=== PATIENT | male | born 1945 | race Caucasian/White ===

== ENCOUNTER 2025-03-30 11:08 | Inpatient (IN) ==
--- NOTE | 2025-03-30 11:28 | Emergency Department Note ---
ED DC CONDITION Conditon at Discharge Condition at Discharge: Fair Impression & Plan T4 vertebral fracture, Fall, Closed fracture of glenoid cavity of left scapula, Chest wall tenderness ED Provider Note NAME: JOSE GUADALUPE HERNANDEZ AGE: 80 SEX: M : 1945 ARRIVES VIA: Walk-In INFORMANT: Patient ED PROVIDER(S): Donavon Cruz DO CHIEF COMPLAINT: Fall HPI: Patient is a 80-year-old male with a past medical history of chest pain, hypertension who presents to the ER for a fall last week. He notes he was stepping out of the bathtub and lost his balance and fell backwards. He has been having pain on his left neck, left shoulder blade, left back mid thoracic and lower lumbar region. He has significant pain with any movement. Denies any weakness or numbness in the arms or legs. No chest pain or shortness of breath. No nausea, vomiting, or diarrhea. No dysuria, urgency, or frequency. He has been walking since then but has significant pain. Able to urinate move bowels. ADDITIONAL HISTORY OBTAINED: Family present at bedside denies use of any blood thinners. Chronic Medical/Social Conditions Affecting Care: Per HPI PAST MEDICAL HISTORY:See Below PAST SURGICAL HISTORY:See Below FAMILY HISTORY:See Below SOCIAL HISTORY:See Below HOME MEDICATIONS:See Below ALLERGIES:See Below VITALS:See Below PHYSICAL EXAMINATION: GENERAL: alert, well appearing, well nourished, no distress, non-toxic HEAD: normal cephalic, atraumatic EYE EXAM: normal conjunctiva, PERRL and EOM's grossly intact OROPHARYNX: no exudate, no erythema, lips, buccal mucosa, and tongue normal and mucous membranes are moist NECK: supple, no nuchal rigidity, no adenopathy, tender in the cervical region paraspinally with midline tenderness resuming in the mid thoracic region tracking down to the lower lumbar region CHEST: stable to compression anteriorly and posteriorly LUNGS: clear to auscultation. Normal chest wall mechanics HEART: no murmurs, S1 normal and S2 normal ABDOMEN: abdomen soft, non-tender, normo-active bowel sounds, no masses, no rebound or guarding. PELVIS: stable to compression anteriorly and posteriorly BACK: Back is symmetrical on inspection and there is no deformity, tenderness midthoracic tracking to the lower lumbar and left paraspinal region, no CVA tenderness. UPPER EXTREMITIES: full active and passive range of motion of all joints without tenderness to palpation LOWER EXTREMITIES: full active and passive range of motion of all joints without tenderness to palpation NEURO EXAM: Normal sensorium, cranial nerves II-XII grossly intact, normal speech, no gross weakness of arms, no gross weakness of legs. GCS: 15. MEDICAL DECISION MAKING: Patient is a 80-year-old male who presents ER for the above-stated complaint. IV was established and blood work was obtained. Labs showed no significant leukocytosis. Mild anemia 12.4. BMP along with LFTs bilirubin was unremarkable. Troponin was negative. Lipase was normal. UA was clean. Lyme was negative. Patient had a mechanical fall and CT of the head, cervical spine, chest abdomen pelvis thoracic and lumbar spine shows a T4 fracture and fracture of the glenoid. Discussed with Dr. Howell and he recommends following this up as an outpatient. Discussed with Dr. Neri and he recommended sling and having him follow-up as an outpatient. Patient has not symptomatic pain with movement. Was given IV morphine x 2. Was admitted for pain control and inability to care for self. Consults/Care Managements Discussions: Per [facility] Triage Nursing notes reviewed. Limited review of prior medical records performed Vital Signs: reviewed and remarkable for hypotension Differential diagnosis: Differential diagnoses include major intracranial, cervical, spinal, thoracic, abdominal, pelvic and neurologic injury. Fracture, contusion, sprain, strain, laceration, abrasions included as well. ER treatment provided: See below Diagnostics interpreted by me include EKG and cardiac monitoring as listed below: -Cardiac Monitoring: An order was placed for continuous cardiac monitoring. The monitor shows a rate of 70 with sinus rhythm. -ECG: Sinus rhythm rate of 67 Left axis No PVCs QTc 420 -Laboratory studies:Interpreted by me as stated above in MDM and shown below. Imaging studies: Xrays: As interpreted by me: Portable AP upright 1 view the chest shows no focal infiltrate, x-rays of the ribs without any obvious fractures CTs show: CT head, cervical spine, chest abdomen pelvis thoracic and lumbar spine as described above Procedures:none Critical Care: None Past Med/Surg History Problem List (Updated 03/30/25 @ 17:10 by Donavon Cruz DO) Chest wall tenderness (Acute) Fall (Acute) Closed fracture of glenoid cavity of left scapula (Acute) T4 vertebral fracture (Acute) Ambulatory dysfunction Fall Corneal foreign body (Acute) Chest pain (Acute) Medical History Arthritis BPH (benign prostatic hyperplasia) GERD (gastroesophageal reflux disease) Diabetes mellitus, type 2 Hx of basal cell carcinoma History of anxiety Hypertension Hyperlipidemia Surgical History History of cataract surgery right History of repair of rotator cuff right History of colonoscopy History of appendectomy History of cholecystectomy History of tooth extraction History of cardiac cath 2019> no stents placed Family History Other No family history of adverse response to anesthesia Social History Smoking Status: Never smoker Tobacco Type: Smokeless Tobacco (Dip or Chew) Second Hand Exposure: Yes (in the past); Do You Dip or Chew Tobacco: Yes (advised); Hx Alcohol Use: No Preferred Language: Polish Siphoner Required: No Beliefs That Will Affect Care: None Current Living Situation: Significant Other Feels Safe at Home: Yes Assistive Devices: Denture - Upper and Denture - Lower Allergies Allergies Allergy/AdvReac Type Severity Reaction Status Date / Time No Known Allergies Allergy Mild Verified 03/30/25 14:18 Home Meds Home Medications Medication Instructions Recorded Confirmed aspirin 81 mg capsule 81 mg PO Q2D 02/06/24 03/30/25 carvedilol 6.25 mg tablet 6.25 mg PO BID 02/06/24 03/30/25 cyanocobalamin (vitamin B-12) 1,000 mcg PO DAILY 02/06/24 03/30/25 1,000 mcg tablet doxazosin 4 mg tablet 4 mg PO HS 02/06/24 03/30/25 empagliflozin 25 mg tablet 25 mg PO QAM 02/06/24 03/30/25 (Jardiance) lisinopril 20 mg tablet 20 mg PO QAM 02/06/24 03/30/25 metformin 500 mg tablet 1,000 mg PO BID 02/06/24 03/30/25 pantoprazole 40 mg tablet,delayed 40 mg PO BID 02/06/24 03/30/25 release rosuvastatin 5 mg tablet 5 mg PO HS 02/06/24 03/30/25 sertraline 100 mg tablet 100 mg PO QPM 02/06/24 03/30/25 finasteride 5 mg tablet 5 mg PO QAM 03/30/25 03/30/25 Results & Data (ED) Vital Signs Vital Signs - 24 hr 03/30/25 11:12 03/30/25 11:33 03/30/25 11:38 Temperature 36.8 C Temperature Source Temporal Artery Scan Pulse Rate - Lying Pulse Rate - Sitting Pulse Rate - Standing Pulse Rate 73 69 Pulse Rate [Apical] Respiratory Rate 20 Respiratory Effort / Characteristics Non-Labored Spontaneous Respiratory Depth Normal Respiratory Pattern Blood Pressure - Lying Blood Pressure - Sitting Blood Pressure- Standing Blood Pressure 95/55 L Blood Pressure [Right Arm] Blood Pressure Mean 68 Blood Pressure Mean [Right Arm] Blood Pressure Position [Right Arm] Pulse Oximetry 98 91 Oxygen Delivery Method Room Air Room Air Sepsis Recent Fever Within 48 Hours No Sepsis New/Unexplained Change in Mental Status No Sepsis Action Taken by Nursing No Action Required 03/30/25 11:39 03/30/25 13:39 03/30/25 14:08 Temperature Temperature Source Pulse Rate - Lying Pulse Rate - Sitting Pulse Rate - Standing Pulse Rate Pulse Rate [Apical] 57 L 65 Respiratory Rate 22 20 Respiratory Effort / Characteristics Non-Labored Spontaneous Non-Labored Spontaneous Respiratory Depth Normal Normal Respiratory Pattern Regular Blood Pressure - Lying Blood Pressure - Sitting Blood Pressure- Standing Blood Pressure Blood Pressure [Right Arm] 117/57 L 114/60 Blood Pressure Mean Blood Pressure Mean [Right Arm] 77 78 Blood Pressure Position [Right Arm] Semi-fowlers Sitting Pulse Oximetry 92 92 93 Oxygen Delivery Method Room Air Room Air Room Air Sepsis Recent Fever Within 48 Hours Sepsis New/Unexplained Change in Mental Status Sepsis Action Taken by Nursing 03/30/25 15:13 03/30/25 15:38 03/30/25 16:41 Temperature Temperature Source Pulse Rate - Lying 61 Pulse Rate - Sitting 76 Pulse Rate - Standing 72 Pulse Rate 72 Pulse Rate [Apical] 61 Respiratory Rate 26 H Respiratory Effort / Characteristics Respiratory Depth Respiratory Pattern Blood Pressure - Lying 128/66 Blood Pressure - Sitting 117/57 L Blood Pressure- Standing 123/62 Blood Pressure Blood Pressure [Right Arm] 109/93 Blood Pressure Mean Blood Pressure Mean [Right Arm] 98 Blood Pressure Position [Right Arm] Pulse Oximetry 96 Oxygen Delivery Method Room Air Sepsis Recent Fever Within 48 Hours Sepsis New/Unexplained Change in Mental Status Sepsis Action Taken by Nursing Laboratory Data 03/30/25 11:33 03/30/25 11:33 Lab Results 03/30/25 03/30/25 03/30/25 Range/Units 11:33 11:36 Unknown WBC 7.39 (4.8-10.8) K/ul RBC 4.70 (4.70-6.10) M/uL Hgb 12.4 L (14.0-18.0) g/dl POC Hgb 12.6 L (14.0-18.0) g/dl Hct 37.9 L (42.0-52.0) % POC Hct 37 L (42-52) % MCV 80.6 (80.0-100.0) fL MCH 26.4 (25.0-34.0) pg MCHC 32.7 (32.0-36.0) g/dL RDW Std Deviation 44.4 (36.4-46.3) fL RDW Coeff of Ruben 15.4 H (11.5-14.5) % Plt Count 219 (130-400) K/uL MPV 8.6 L (9.4-12.4) fL Immature Gran % (Auto) 0.7 % Neut % (Auto) 77.8 % Lymph % (Auto) 11.4 % Banks % (Auto) 9.2 % Eos % (Auto) 0.5 % Baso % (Auto) 0.4 % Neut # (Auto) 5.75 (1.40-6.50) K/uL Lymph # (Auto) 0.84 L (1.20-3.40) K/uL Banks # (Auto) 0.68 H (0.11-0.59) K/uL Eos # (Auto) 0.04 (0.00-0.50) K/uL Baso # (Auto) 0.03 (0.00-0.20) K/uL Immature Gran # (Auto) 0.05 (0.01-0.20) K/uL POC Sodium 140 (135-144) mmol/L Sodium 140 (136-145) mmol/L POC Potassium 4.0 (3.3-5.0) mmol/L Potassium 4.0 (3.5-5.1) mmol/L POC Chloride 102 (101-112) mmol/L Chloride 103 (98-107) mmol/L Carbon Dioxide 27 (21-32) mmol/L POC Total CO2 27 (24-31) mmol/L Anion Gap 10 (3-11) POC Anion Gap 16.0 (16-25) mmol/L POC BUN 17 (7-18) mg/dl BUN 18 (6-23) mg/dl Creatinine 0.86 (0.6-1.4) mg/dl POC Creatinine 0.9 (0.6-1.3) mg/dl Est Cr Clr Drug Dosing 69.6 ml/min eGFR 88.08 BUN/Creatinine Ratio 20.9 H (10-20) Glucose 234 H (70-99(Fasting)) mg/dl POC Glucose (other) 229 H (70-99) mg/dl Calcium 9.3 (8.6-10.3) mg/dl POC Ioniz Calcium Key 1.20 (1.12-1.32) mmol/l Total Bilirubin 0.7 (0.2-1.0) mg/dl AST 11 L (13-39) U/L ALT 17 (7-52) U/L Alkaline Phosphatase 124 H (34-104) U/L Troponin I High Sens 6.9 (0-20) pg/ml Total Protein 7.2 (6.0-8.3) gm/dl Albumin 3.8 (3.4-5.0) gm/dl Globulin 3.4 (2.5-4.0) gm/dl Albumin/Globulin Ratio 1.1 (0.9-2) Lipase 9 L (11-82) U/L Urine Color Yellow Urine Appearance Clear (Clear) Urine pH 5.5 (4.5-7.5) Ur Specific Hazel > 1.045 H (1.000-1.030) Urine Protein Negative (Negative) Urine Glucose (UA) 3+ H (Negative) Urine Ketones Negative (Negative) Urine Blood Negative (Negative) Urine Nitrite Negative (Negative) Urine Bilirubin Negative (Negative) Urine Urobilinogen Negative (Negative) Ur Leukocyte Esterase Negative (Negative) Urine Comment Lyme Disease Screen Negative (Negative) Administered Medications Discontinued Medications Sodium Chloride (Nss) 1,000 mls @ 999 mls/hr IV .Q1H1M ONE Stop: 03/30/25 12:28 Last Infusion: 03/30/25 14:31 Dose: Infused Documented By: Admin: 03/30/25 11:48 Dose: 999 mls/hr Documented By: MURALI Ioversol (Optiray 320 100ml) 94 ml IV ONCE ONE Stop: 03/30/25 12:27 Last Admin: 03/30/25 12:26 Dose: 94 ml Documented By: JENNY Morphine Sulfate (Morphine Sulfate 2 Mg/Ml Carp) 2 mg IV NOW STA Stop: 03/30/25 11:29 Last Admin: 03/30/25 11:48 Dose: 2 mg Documented By: MMF Morphine Sulfate (Morphine Sulfate 2 Mg/Ml Carp) 2 mg IV NOW STA Stop: 03/30/25 14:56 Last Admin: 03/30/25 15:13 Dose: 2 mg Documented By: JOLENE Ondansetron HCl (Ondansetron Inj 2 Mg/Ml 2 Ml Vial) 4 mg IV NOW STA Stop: 03/30/25 11:29 Last Admin: 03/30/25 11:48 Dose: 4 mg Documented By: MURALI Imaging Data Radiologist's Impression: Chest X-Ray 03/30/25 11:24 EXAM: Radiograph of the Chest 1 View INDICATION: Pain TECHNIQUE: Frontal view of the chest. COMPARISON: No relevant prior studies available. FINDINGS: Lungs and pleural spaces: Mild symmetrical interstitial scarring present. No consolidation or pulmonary edema. No pleural effusion or pneumothorax. Heart: Shape and configuration within normal limits allowing for technique. Mediastinum: Normal contour. Bones/joints: Degenerative changes noted throughout the spine and both shoulders. No lytic or blastic lesions noted. Soft tissues: No abnormality noted. No radiopaque foreign body noted. Upper abdomen: No abnormality noted. IMPRESSION: No acute cardiopulmonary disease. ACT 112: N/A Electronically signed by Yasmeen Araujo 03-30-2025 12:52 PM Abdomen/Pelvis CT 03/30/25 11:25 EXAM: CT Chest Abdomen and Pelvis With Intravenous Contrast INDICATION: Trauma last week. Weakness. TECHNIQUE: Axial computed tomography images of the chest, abdomen and pelvis with intravenous contrast. Sagittal and coronal reformatted images were created and reviewed. This CT exam was performed using one or more of the following dose reduction techniques: automated exposure control, adjustment of the mA and/or kV according to patient size, and/or use of iterative reconstruction technique. CONTRAST: 94ml of Optiray 320 was administered intravenously. COMPARISON: No relevant prior studies available. FINDINGS: Limitations: None. CHEST: Lungs and pleural spaces: There is dependent atelectasis in both lung bases. No significant pleural effusion. No pneumothorax. No mass. Heart: Cardiomegaly. No right heart strain. No pericardial effusion. Marked left anterior coronary calcification noted. Mediastinum: No abnormality noted. Thyroid: No abnormality noted. ABDOMEN: Liver: Low attenuation focus in the liver consistent with a hepatic cyst. No follow-up is necessary. Gallbladder and bile ducts: Cholecystectomy. No ductal dilation or stone noted. Pancreas: Homogeneous enhancement. No mass, inflammation or ductal dilation. Spleen: No significant abnormality noted. Adrenals: No significant abnormality noted. Kidneys and ureters: Normal enhancement. No mass, hydronephrosis or visualized stone. Stomach and bowel: Prominent fluid throughout the intestinal tract without obstruction. There is some formed stool scattered in loops particularly the rectum. No focal inflammatory process. There is a right inguinal hernia containing small bowel loops without obstruction. PELVIS: Appendix: No findings to suggest acute appendicitis. Bladder: No filling defects to suggest mass or large stone. No inflammation. Reproductive: Enlarged heterogeneous sleep enhancing prostate with nodular opacities present throughout. The prostate measures 6.0 x 5.5 x 5.8 cm. CHEST, ABDOMEN and PELVIS: Intraperitoneal space: No free air. No significant fluid collection. Retroperitoneal space: No abnormality noted. No fluid collection. Bones/joints: See below. Soft tissues: There is a small paraspinal soft tissue hematoma at approximate T4 with fracture through the anterior osseous bridge at T3-T4 and the superior endplate of T4. No stenosis. Degenerative changes present at other spinal levels. There is an acute comminuted fracture of the left glenoid. Vasculature: Atherosclerotic calcification of the aorta and branches. No aneurysm. Lymph nodes: No enlarged lymph nodes. IMPRESSION: 1. Acute left glenoid and T4 fractures. 2. No traumatic change of the aorta or solid abdominal or pelvic organs. Impression ileus. Impression enlarged prostate with multiple nodules. Correlate clinically. 3. Small bowel containing right inguinal hernia without obstruction. ACT 112: N/A Electronically signed by Yasmeen Araujo 03-30-2025 13:[address] 03/30/25 11:25 EXAM: CT Head and Cervical Spine Without Intravenous Contrast INDICATION: Trauma last week. Weakness. TECHNIQUE: Axial computed tomography images of the head/brain and cervical spine without intravenous contrast. Sagittal and coronal reformatted images were created and reviewed. This CT exam was performed using one or more of the following dose reduction techniques: automated exposure control, adjustment of the mA and/or kV according to patient size, and/or use of iterative reconstruction technique. COMPARISON: No relevant prior studies available. FINDINGS: Limitations: None. Brain and extra-axial spaces: There is age appropriate cortical atrophy and chronic ischemic periventricular white matter hypodensity. No acute infarct, hemorrhage or mass noted. Sinuses: No layering fluid in the visualized portions of the paranasal sinuses. Mastoid air cells: No mastoid effusion. Orbits: No significant abnormality noted. Vertebrae: See below. Discs/spinal canal/neural foramina: Cervical vertebra demineralized. Diffuse moderate facet arthrosis. There is partial osseous fusion of C2 and C3. Mild spondylosis. Prominent uncal spurring C3-C4. Diffuse mild disc space narrowing. Soft tissues: No significant abnormality noted. Vasculature: Intracranial atherosclerosis noted. Mild intracranial atherosclerosis of the vertebral arteries. Lung apices: No significant abnormality noted. Pleural space: No visualized pleural effusion or pneumothorax. IMPRESSION: 1. Cerebral atrophy. No acute changes. 2. Cervical degenerative changes. No fracture. ACT 112: N/A Electronically signed by Yasmeen Araujo 03-30-2025 13:[address] 03/30/25 11:25 EXAM: CT Chest Abdomen and Pelvis With Intravenous Contrast INDICATION: Trauma last week. Weakness. TECHNIQUE: Axial computed tomography images of the chest, abdomen and pelvis with intravenous contrast. Sagittal and coronal reformatted images were created and reviewed. This CT exam was performed using one or more of the following dose reduction techniques: automated exposure control, adjustment of the mA and/or kV according to patient size, and/or use of iterative reconstruction technique. CONTRAST: 94ml of Optiray 320 was administered intravenously. COMPARISON: No relevant prior studies available. FINDINGS: Limitations: None. CHEST: Lungs and pleural spaces: There is dependent atelectasis in both lung bases. No significant pleural effusion. No pneumothorax. No mass. Heart: Cardiomegaly. No right heart strain. No pericardial effusion. Marked left anterior coronary calcification noted. Mediastinum: No abnormality noted. Thyroid: No abnormality noted. ABDOMEN: Liver: Low attenuation focus in the liver consistent with a hepatic cyst. No follow-up is necessary. Gallbladder and bile ducts: Cholecystectomy. No ductal dilation or stone noted. Pancreas: Homogeneous enhancement. No mass, inflammation or ductal dilation. Spleen: No significant abnormality noted. Adrenals: No significant abnormality noted. Kidneys and ureters: Normal enhancement. No mass, hydronephrosis or visualized stone. Stomach and bowel: Prominent fluid throughout the intestinal tract without obstruction. There is some formed stool scattered in loops particularly the rectum. No focal inflammatory process. There is a right inguinal hernia containing small bowel loops without obstruction. PELVIS: Appendix: No findings to suggest acute appendicitis. Bladder: No filling defects to suggest mass or large stone. No inflammation. Reproductive: Enlarged heterogeneous sleep enhancing prostate with nodular opacities present throughout. The prostate measures 6.0 x 5.5 x 5.8 cm. CHEST, ABDOMEN and PELVIS: Intraperitoneal space: No free air. No significant fluid collection. Retroperitoneal space: No abnormality noted. No fluid collection. Bones/joints: See below. Soft tissues: There is a small paraspinal soft tissue hematoma at approximate T4 with fracture through the anterior osseous bridge at T3-T4 and the superior endplate of T4. No stenosis. Degenerative changes present at other spinal levels. There is an acute comminuted fracture of the left glenoid. Vasculature: Atherosclerotic calcification of the aorta and branches. No aneurysm. Lymph nodes: No enlarged lymph nodes. IMPRESSION: 1. Acute left glenoid and T4 fractures. 2. No traumatic change of the aorta or solid abdominal or pelvic organs. Impression ileus. Impression enlarged prostate with multiple nodules. Correlate clinically. 3. Small bowel containing right inguinal hernia without obstruction. ACT 112: N/A Electronically signed by Yasmeen Araujo 03-30-2025 13:[address] 03/30/25 11:25 EXAM: CT Head and Cervical Spine Without Intravenous Contrast INDICATION: Trauma last week. Weakness. TECHNIQUE: Axial computed tomography images of the head/brain and cervical spine without intravenous contrast. Sagittal and coronal reformatted images were created and reviewed. This CT exam was performed using one or more of the following dose reduction techniques: automated exposure control, adjustment of the mA and/or kV according to patient size, and/or use of iterative reconstruction technique. COMPARISON: No relevant prior studies available. FINDINGS: Limitations: None. Brain and extra-axial spaces: There is age appropriate cortical atrophy and chronic ischemic periventricular white matter hypodensity. No acute infarct, hemorrhage or mass noted. Sinuses: No layering fluid in the visualized portions of the paranasal sinuses. Mastoid air cells: No mastoid effusion. Orbits: No significant abnormality noted. Vertebrae: See below. Discs/spinal canal/neural foramina: Cervical vertebra demineralized. Diffuse moderate facet arthrosis. There is partial osseous fusion of C2 and C3. Mild spondylosis. Prominent uncal spurring C3-C4. Diffuse mild disc space narrowing. Soft tissues: No significant abnormality noted. Vasculature: Intracranial atherosclerosis noted. Mild intracranial atherosclerosis of the vertebral arteries. Lung apices: No significant abnormality noted. Pleural space: No visualized pleural effusion or pneumothorax. IMPRESSION: 1. Cerebral atrophy. No acute changes. 2. Cervical degenerative changes. No fracture. ACT 112: N/A Electronically signed by Yasmeen Araujo 03-30-2025 13:[address] 03/30/25 11:25 EXAM: CT Thoracic and Lumbar Spine Without Intravenous Contrast INDICATION: Fell last week. Generalized weakness. TECHNIQUE: Axial computed tomography images of the thoracic and lumbar spine without intravenous contrast. Sagittal and coronal reformatted images were created and reviewed. This CT exam was performed using one or more of the following dose reduction techniques: automated exposure control, adjustment of the mA and/or kV according to patient size, and/or use of iterative reconstruction technique. COMPARISON: No relevant prior studies available. FINDINGS: Vertebrae: The bones are generally demineralized. There is mild S-shaped curvature of the thoracic spine. Diffuse osseous demineralization noted. Diffuse thoracolumbar spondylosis noted. Facet arthrosis noted in the lumbar spine. Acute fracture through the superior endplate and anterior osseous bridge of T4. There is diffuse moderate facet arthrosis. There is moderate thoracolumbar spondylosis. No fracture or subluxation. Discs/spinal canal/neural foramina: Diffuse moderate thoracic disc space narrowing. Mild generalized lumbar disc space narrowing most notable at L5-S1. There is facet hypertrophy and diffuse disc bulge at L3-L4 with mild ventral and bilateral foraminal stenosis. Slightly more prominent but similar changes noted at L4-L5. Soft tissues: No significant abnormality noted. IMPRESSION: 1. Acute fracture through the superior endplate and anterior osseous bridge of T4. Small paraspinal soft tissue hematoma noted. 2. No acute lumbar abnormality noted. ACT 112: N/A Electronically signed by Yasmeen Araujo 03-30-2025 13:[address] 03/30/25 11:25 EXAM: CT Thoracic and Lumbar Spine Without Intravenous Contrast INDICATION: Fell last week. Generalized weakness. TECHNIQUE: Axial computed tomography images of the thoracic and lumbar spine without intravenous contrast. Sagittal and coronal reformatted images were created and reviewed. This CT exam was performed using one or more of the following dose reduction techniques: automated exposure control, adjustment of the mA and/or kV according to patient size, and/or use of iterative reconstruction technique. COMPARISON: No relevant prior studies available. FINDINGS: Vertebrae: The bones are generally demineralized. There is mild S-shaped curvature of the thoracic spine. Diffuse osseous demineralization noted. Diffuse thoracolumbar spondylosis noted. Facet arthrosis noted in the lumbar spine. Acute fracture through the superior endplate and anterior osseous bridge of T4. There is diffuse moderate facet arthrosis. There is moderate thoracolumbar spondylosis. No fracture or subluxation. Discs/spinal canal/neural foramina: Diffuse moderate thoracic disc space narrowing. Mild generalized lumbar disc space narrowing most notable at L5-S1. There is facet hypertrophy and diffuse disc bulge at L3-L4 with mild ventral and bilateral foraminal stenosis. Slightly more prominent but similar changes noted at L4-L5. Soft tissues: No significant abnormality noted. IMPRESSION: 1. Acute fracture through the superior endplate and anterior osseous bridge of T4. Small paraspinal soft tissue hematoma noted. 2. No acute lumbar abnormality noted. ACT 112: N/A Electronically signed by Yasmeen Araujo 03-30-2025 13:24 PM Shoulder X-Ray 03/30/25 14:46 Study: Left shoulder 4 views History: Trauma Comparison: None Findings/impression: Comminuted fracture of the left glenoid is seen. No significant displacement. Alignment is anatomic. Joint spaces are well maintained. There is no joint effusion or significant soft tissue swelling. Bone mineralization is decreased. Electronically signed by Diego Alcantara 03-30-2025 4:24 PM Ribs X-Ray 03/30/25 15:47 Left ribs, 5 views History: Chest pain Comparison: None Findings: Single AP view of the chest performed. No focal consolidation or pleural effusion. No pneumothorax. The cardiomediastinal silhouette is within normal limits. Normal pulmonary vascularity. No evidence for lymphadenopathy. No visualized bony or soft tissue abnormality. Impression: No acute left rib abnormality. Electronically signed by Diego Alcantara 03-30-2025 5:06 PM Discharge Plan Visit Data Chief Complaint: Weakness Stated Complaint: WEAKNESS ED Provider: Donavon Cruz Discharge Problem: T4 vertebral fracture, Fall, Closed fracture of glenoid cavity of left scapula, Chest wall tenderness Condition: Fair Forms Stand Alone Forms: My [facility] Prescriptions Prescriptions: No Action metformin 500 mg Tablet 1,000 mg PO BID sertraline 100 mg Tablet 100 mg PO QPM pantoprazole 40 mg Tablet,Delayed Release (Dr/Ec) 40 mg PO BID doxazosin 4 mg Tablet 4 mg PO HS rosuvastatin 5 mg Tablet 5 mg PO HS lisinopril 20 mg Tablet 20 mg PO QAM cyanocobalamin (vitamin B-12) 1,000 mcg Tablet 1,000 mcg PO DAILY Jardiance 25 mg Tablet 25 mg PO QAM aspirin 81 mg Capsule 81 mg PO Q2D carvedilol 6.25 mg Tablet 6.25 mg PO BID Rx Instructions: must administer with a meal/food finasteride 5 mg tablet 5 mg PO QAM Referrals Referrals: PCP,NO [Physician] - Discharge Problem: T4 vertebral fracture Qualifiers: Encounter type: initial encounter Fracture type: closed Fracture morphology: u nspecified fracture morphology Qualified Code(s): S22.049A - Unspecified fracture of fourth thoracic vertebra, initial encounter for closed fracture Fall Qualifiers: Encounter type: initial encounter Qualified Code(s): W19.XXXA - Unspecified fall, initial encounter Closed fracture of glenoid cavity of left scapula Qualifiers: Encounter type: initial encounter Fracture alignment: nondisplaced Qualified Code(s): S42.145A - Nondisplaced fracture of glenoid cavity of scapula, left shoulder, initial encounter for closed fracture
[2025-03-30] MEDS: SODIUM CHLORIDE 0.9% 1,000 ML IV ONE (11:48)
[2025-03-30] MEDS: MoRPHine SULFATE 2 MG/ML CARP IV STA ×2 (11:48→15:13)
[2025-03-30] MEDS: ONDANSETRON INJ 2 MG/ML 2 ML VIAL IV STA (11:48)
[2025-03-30 11:50] LABS: Hematocrit (blood only) 37.9 % (42.0-52.0); Hemoglobin 12.4 g/dl (14.0-18.0); Immature Granulocytes # (auto) 0.05 K/uL (0.01-0.20); Immature Granulocytes % (auto) 0.7 %; Mean Corpuscular Hemoglobin 26.4 pg (25.0-34.0); Mean Corpuscular Volume 80.6 fL (80.0-100.0); Platelet Count 219 K/uL (130-400); RDW Standard Deviation 44.4 fL (36.4-46.3); Red Blood Count 4.70 M/uL (4.70-6.10); White Blood Count 7.39 K/ul (4.8-10.8)
[2025-03-30 12:06] LABS: Alanine Aminotransferase 17.0 U/L (7-52); Albumin Globulin Ratio 1.1 (0.9-2); Alkaline Phosphatase 124.0 U/L (34-104); Anion Gap 10.0 (3-11); Bilirubin,Total 0.7 mg/dl (0.2-1.0); Blood Urea Nitrogen 18.0 mg/dl (6-23); Calcium 9.3 mg/dl (8.6-10.3); Carbon Dioxide 27.0 mmol/L (21-32); Chloride 103.0 mmol/L (98-107); Creatinine Clr Calc Pharmacy 69.6 ml/min; Globulin 3.4 gm/dl (2.5-4.0); Glucose 234.0 mg/dl (70-99(Fasting)); Lipase 9.0 U/L (11-82); Potassium 4.0 mmol/L (3.5-5.1); Sodium 140.0 mmol/L (136-145); Total Protein 7.2 gm/dl (6.0-8.3)
[2025-03-30] MEDS: OPTIRAY 320 100ml IV ONE (12:26)
--- NOTE | 2025-03-30 12:52 | XRay Report ---
EXAM: Radiograph of the Chest 1 View INDICATION: Pain TECHNIQUE: Frontal view of the chest. COMPARISON: No relevant prior studies available. FINDINGS: Lungs and pleural spaces: Mild symmetrical interstitial scarring present. No consolidation or pulmonary edema. No pleural effusion or pneumothorax. Heart: Shape and configuration within normal limits allowing for technique. Mediastinum: Normal contour. Bones/joints: Degenerative changes noted throughout the spine and both shoulders. No lytic or blastic lesions noted. Soft tissues: No abnormality noted. No radiopaque foreign body noted. Upper abdomen: No abnormality noted. IMPRESSION: No acute cardiopulmonary disease. ACT 112: N/A Electronically signed by Yasmeen Araujo 03-30-2025 12:52 PM
--- NOTE | 2025-03-30 13:15 | CT Scan Report ---
EXAM: CT Head and Cervical Spine Without Intravenous Contrast INDICATION: Trauma last week. Weakness. TECHNIQUE: Axial computed tomography images of the head/brain and cervical spine without intravenous contrast. Sagittal and coronal reformatted images were created and reviewed. This CT exam was performed using one or more of the following dose reduction techniques: automated exposure control, adjustment of the mA and/or kV according to patient size, and/or use of iterative reconstruction technique. COMPARISON: No relevant prior studies available. FINDINGS: Limitations: None. Brain and extra-axial spaces: There is age appropriate cortical atrophy and chronic ischemic periventricular white matter hypodensity. No acute infarct, hemorrhage or mass noted. Sinuses: No layering fluid in the visualized portions of the paranasal sinuses. Mastoid air cells: No mastoid effusion. Orbits: No significant abnormality noted. Vertebrae: See below. Discs/spinal canal/neural foramina: Cervical vertebra demineralized. Diffuse moderate facet arthrosis. There is partial osseous fusion of C2 and C3. Mild spondylosis. Prominent uncal spurring C3-C4. Diffuse mild disc space narrowing. Soft tissues: No significant abnormality noted. Vasculature: Intracranial atherosclerosis noted. Mild intracranial atherosclerosis of the vertebral arteries. Lung apices: No significant abnormality noted. Pleural space: No visualized pleural effusion or pneumothorax. IMPRESSION: 1. Cerebral atrophy. No acute changes. 2. Cervical degenerative changes. No fracture. ACT 112: N/A Electronically signed by Yasmeen Araujo 03-30-2025 13:15 PM
--- NOTE | 2025-03-30 13:25 | CT Scan Report ---
EXAM: CT Thoracic and Lumbar Spine Without Intravenous Contrast INDICATION: Fell last week. Generalized weakness. TECHNIQUE: Axial computed tomography images of the thoracic and lumbar spine without intravenous contrast. Sagittal and coronal reformatted images were created and reviewed. This CT exam was performed using one or more of the following dose reduction techniques: automated exposure control, adjustment of the mA and/or kV according to patient size, and/or use of iterative reconstruction technique. COMPARISON: No relevant prior studies available. FINDINGS: Vertebrae: The bones are generally demineralized. There is mild S-shaped curvature of the thoracic spine. Diffuse osseous demineralization noted. Diffuse thoracolumbar spondylosis noted. Facet arthrosis noted in the lumbar spine. Acute fracture through the superior endplate and anterior osseous bridge of T4. There is diffuse moderate facet arthrosis. There is moderate thoracolumbar spondylosis. No fracture or subluxation. Discs/spinal canal/neural foramina: Diffuse moderate thoracic disc space narrowing. Mild generalized lumbar disc space narrowing most notable at L5-S1. There is facet hypertrophy and diffuse disc bulge at L3-L4 with mild ventral and bilateral foraminal stenosis. Slightly more prominent but similar changes noted at L4-L5. Soft tissues: No significant abnormality noted. IMPRESSION: 1. Acute fracture through the superior endplate and anterior osseous bridge of T4. Small paraspinal soft tissue hematoma noted. 2. No acute lumbar abnormality noted. ACT 112: N/A Electronically signed by Yasmeen Araujo 03-30-2025 13:24 PM
--- NOTE | 2025-03-30 13:31 | CT Scan Report ---
EXAM: CT Chest Abdomen and Pelvis With Intravenous Contrast INDICATION: Trauma last week. Weakness. TECHNIQUE: Axial computed tomography images of the chest, abdomen and pelvis with intravenous contrast. Sagittal and coronal reformatted images were created and reviewed. This CT exam was performed using one or more of the following dose reduction techniques: automated exposure control, adjustment of the mA and/or kV according to patient size, and/or use of iterative reconstruction technique. CONTRAST: 94ml of Optiray 320 was administered intravenously. COMPARISON: No relevant prior studies available. FINDINGS: Limitations: None. CHEST: Lungs and pleural spaces: There is dependent atelectasis in both lung bases. No significant pleural effusion. No pneumothorax. No mass. Heart: Cardiomegaly. No right heart strain. No pericardial effusion. Marked left anterior coronary calcification noted. Mediastinum: No abnormality noted. Thyroid: No abnormality noted. ABDOMEN: Liver: Low attenuation focus in the liver consistent with a hepatic cyst. No follow-up is necessary. Gallbladder and bile ducts: Cholecystectomy. No ductal dilation or stone noted. Pancreas: Homogeneous enhancement. No mass, inflammation or ductal dilation. Spleen: No significant abnormality noted. Adrenals: No significant abnormality noted. Kidneys and ureters: Normal enhancement. No mass, hydronephrosis or visualized stone. Stomach and bowel: Prominent fluid throughout the intestinal tract without obstruction. There is some formed stool scattered in loops particularly the rectum. No focal inflammatory process. There is a right inguinal hernia containing small bowel loops without obstruction. PELVIS: Appendix: No findings to suggest acute appendicitis. Bladder: No filling defects to suggest mass or large stone. No inflammation. Reproductive: Enlarged heterogeneous sleep enhancing prostate with nodular opacities present throughout. The prostate measures 6.0 x 5.5 x 5.8 cm. CHEST, ABDOMEN and PELVIS: Intraperitoneal space: No free air. No significant fluid collection. Retroperitoneal space: No abnormality noted. No fluid collection. Bones/joints: See below. Soft tissues: There is a small paraspinal soft tissue hematoma at approximate T4 with fracture through the anterior osseous bridge at T3-T4 and the superior endplate of T4. No stenosis. Degenerative changes present at other spinal levels. There is an acute comminuted fracture of the left glenoid. Vasculature: Atherosclerotic calcification of the aorta and branches. No aneurysm. Lymph nodes: No enlarged lymph nodes. IMPRESSION: 1. Acute left glenoid and T4 fractures. 2. No traumatic change of the aorta or solid abdominal or pelvic organs. Impression ileus. Impression enlarged prostate with multiple nodules. Correlate clinically. 3. Small bowel containing right inguinal hernia without obstruction. ACT 112: N/A Electronically signed by Yasmeen Araujo 03-30-2025 13:29 PM
[2025-03-30 13:52] LABS: Appearance Urine Clear (Clear); Glucose Urine UA 3+ (Negative)
--- NOTE | 2025-03-30 15:13 | History & Physical Report ---
Date of Service March 30, 2025 Assessment & Plan (1) Fall: (2) Ambulatory dysfunction: (3) T4 vertebral fracture: (4) Closed fracture of glenoid cavity of left scapula: (5) Diabetes mellitus, type 2: (6) Hypertension: Plan This is a 80-year-old male who has a significant past medical history of T2DM, HTN, HLD, GERD, BPH, NATI and B12 deficiency who presents to ED after sustaining a fall approximately 1 week ago. Patient presents to ED after sustaining 2 falls in the last 2 weeks time. First fall occurred on his left shoulder and chest wall while walking picking blueberries. Second fall occurred approximately 1 week ago where he fell backwards getting out of bath tub. Denies striking head or loss of consciousness. Denies any lightheadedness or dizziness. Reports general lower extremity weakness and occasional off balance. #Ambulatory dysfunction #Falls #T4 superior endplate Fx with small paraspinal hematoma #Left glenoid fracture admit to medical consult ortho spine for T4 fx consult orthopedics Dr. Neri for L glenoid fx obtain XR rib series of L chest wall given pinpoint tenderness and pain with deep breathing to eval for rib fx pain control with scheduled 1g apap TID, lidocaine patches to back/chest wall and prn oxy IR 5mg consult PT/OT, NWB to LUE until seen by ortho #T2DM a1c 7.4 on 03/18/25, controlled lantus/novolog per protocol, hold jardiance & metformin #HTN hx of HTN on coreg and lisinopril pt with lower BP in ED, will hold lisinopril for now and monitor, may be associated to morphine co administration obtain orthostatics now and BID, pt reports 6 months ago of orthostasis sx, if positive consider discontinuing dutasteride #per RN: Just wanted to let you know that the pt has an abnormally shaped bump (mole like) with black dry areas on it on the upper mid back just below the neck. He does have a h/o basal cell carninoma. DVT ppx: SCDS for now given small paraspinal hematoma, hold baby ASA as well ( pt is just taking for prevention no hx of cad, pad, stroke or TIA) FULL CODE PCP: Erinn Dispo: admit to medical, PT/OT consulted, pt may benefit from short term rehab Pt was seen and examined in collaboration with Dr. Nguyen, please see addendum I spent a total of 76 minutes coordinating, documenting and providing care for this patient excluding time spent in the performance of separately billed services or time spent by another provider/HP. History of Present Illness Chief Complaint: Fall 1 week ago. Primary Care Provider: Parth Plasencia DO This is a 80-year-old male who has a significant past medical history of T2DM, HTN, HLD, GERD, BPH, NATI and B12 deficiency who presents to ED after sustaining a fall approximately 1 week ago. His significant other is at bedside who also helps elicit history. He reports 2 falls in the past 2 weeks time. He states 2 weeks ago he was out walking picking blueberries whenever he lost his footing and fell on his left side. Since that fall he has been having left shoulder and left chest wall pain. Approximately 1 week ago he fell backwards getting in the tub and landed on his back. Since then he has been having upper and lower back pain. He denies any loss of consciousness or striking his head with his falls. He also denies any lightheadedness, dizziness or presyncope. He feels he should use the walker at home, but has not been. He feels he loses his balance and legs just generally feel weaker. He denies any recent illness, insect bite or rash. He denies any recent fever, chills, sweats, chest pain, shortness of breath, cough, nausea, vomiting, abdominal pain, change in his bowel or urinary habits. He does complain of left-sided chest wall pain with deep breathing. His appetite has otherwise been normal. He has been taking his medications regularly. In ED patient remained hemodynamically stable. CTs reynolds scan revealed an acute fracture through the superior endplate and anterior osseous bridge of T4 with a small paraspinal soft tissue hematoma. Also noted on chest CT was a left glenoid fracture. Due to above fractures admission was recommended for further workup and PT evaluation. Allergies Allergy/AdvReac Type Severity Reaction Status Date / Time No Known Allergies Allergy Mild Verified 03/30/25 14:18 Home Medications Medication Instructions Recorded Confirmed Type aspirin 81 mg capsule 81 mg PO Q2D 02/06/24 03/30/25 History carvedilol 6.25 mg tablet 6.25 mg PO BID 02/06/24 03/30/25 History cyanocobalamin (vitamin B-12) 1,000 mcg PO DAILY 02/06/24 03/30/25 History 1,000 mcg tablet doxazosin 4 mg tablet 4 mg PO HS 02/06/24 03/30/25 History empagliflozin 25 mg tablet 25 mg PO QAM 02/06/24 03/30/25 History (Jardiance) lisinopril 20 mg tablet 20 mg PO QAM 02/06/24 03/30/25 History metformin 500 mg tablet 1,000 mg PO BID 02/06/24 03/30/25 History pantoprazole 40 mg tablet,delayed 40 mg PO BID 02/06/24 03/30/25 History release rosuvastatin 5 mg tablet 5 mg PO HS 02/06/24 03/30/25 History sertraline 100 mg tablet 100 mg PO QPM 02/06/24 03/30/25 History finasteride 5 mg tablet 5 mg PO QAM 03/30/25 03/30/25 History Past Med/Surg History Problem List (Updated 03/30/25 @ 17:10 by Donavon Cruz DO) Chest wall tenderness (Acute) Fall (Acute) Closed fracture of glenoid cavity of left scapula (Acute) T4 vertebral fracture (Acute) Ambulatory dysfunction Fall Corneal foreign body (Acute) Chest pain (Acute) Medical History Arthritis BPH (benign prostatic hyperplasia) GERD (gastroesophageal reflux disease) Diabetes mellitus, type 2 Hx of basal cell carcinoma History of anxiety Hypertension Hyperlipidemia Surgical History History of cataract surgery right History of repair of rotator cuff right History of colonoscopy History of appendectomy History of cholecystectomy History of tooth extraction History of cardiac cath 2019> no stents placed Family History Other No family history of adverse response to anesthesia Social History Smoking Status: Never smoker Tobacco Type: Smokeless Tobacco (Dip or Chew) Second Hand Exposure: No; Do You Dip or Chew Tobacco: Yes; Tobacco Cessation Education Requested by Patient: No Hx Alcohol Use: No Hx Substance Use: No Preferred Language: [place] Communication Ability: Effective Nurse Wound Required: No Beliefs That Will Affect Care: None Current Living Situation: Significant Other Other Information That Helps Us Care for You: No Feels Safe at Home: Yes Safety Concerns: Feels Safe At This Time Assistive Devices: Glasses Assistive Devices Comment: Reading glasses normally, but not with pt. Review of Systems Review of Systems: All systems reviewed & are unremarkable except as noted in HPI & below Physical Exam Physical Exam: Constitutional: Elderly, M sitting up in bed, appears in pain, vitals as above, NAD, sitting up in bed, pleasant, conversing easily Head: Normocephalic, Atraumatic Eyes: conjunctivae normal, anicteric sclerae ENMT: external ear and nose normal, oropharynx normal dry membranes Neck: trachea midline, no thyromegaly normal visual inspection Respiratory: normal respiratory effort, lungs clear to auscultation, no wheeze, rales, rhonchi. Cardiovascular: RRR, no edema Vessels: no JVD or carotid bruit Chest: normal inspection of chest Abdomen: normal bowel sounds, soft, nontender, no hepatosplenomegaly Musculoskeletal: no cyanosis or clubbing, pain to palp L anterior chest wall, thoracic post spinous process and lower paraspinal musculature. Pain with ROM TO L shoulder Skin: no rashes, warm and dry normal turgor Neurologic: = no face palsy, no dysarthria CN's II-XI intact bilaterally and moves all extremities Psychiatric: A+Ox3, euthymic affect = Results & Data Results & Data Vital Signs (Past 12 Hours) Vital Signs Temp Pulse Pulse Resp BP BP Pulse Ox 03/30/25 14:08 65 20 114/60 93 03/30/25 13:39 57 L 22 117/57 L 92 03/30/25 11:39 92 03/30/25 11:38 91 03/30/25 11:33 69 03/30/25 11:12 36.8 C 73 20 95/55 L 98 O2 Del Method 03/30/25 14:08 Room Air 03/30/25 13:39 Room Air 03/30/25 11:39 Room Air 03/30/25 11:38 Room Air 03/30/25 11:33 03/30/25 11:12 Room Air Laboratory Results I have independently reviewed and interpreted patient's admitting labs including CBC, CMP, PTT, UA, lipase, troponin. Diagnostic Findings Chest X-Ray 03/30/25 11:24 EXAM: Radiograph of the Chest 1 View INDICATION: Pain TECHNIQUE: Frontal view of the chest. COMPARISON: No relevant prior studies available. FINDINGS: Lungs and pleural spaces: Mild symmetrical interstitial scarring present. No consolidation or pulmonary edema. No pleural effusion or pneumothorax. Heart: Shape and configuration within normal limits allowing for technique. Mediastinum: Normal contour. Bones/joints: Degenerative changes noted throughout the spine and both shoulders. No lytic or blastic lesions noted. Soft tissues: No abnormality noted. No radiopaque foreign body noted. Upper abdomen: No abnormality noted. IMPRESSION: No acute cardiopulmonary disease. ACT 112: N/A Electronically signed by Yasmeen Araujo 03-30-2025 12:52 PM Abdomen/Pelvis CT 03/30/25 11:25 EXAM: CT Chest Abdomen and Pelvis With Intravenous Contrast INDICATION: Trauma last week. Weakness. TECHNIQUE: Axial computed tomography images of the chest, abdomen and pelvis with intravenous contrast. Sagittal and coronal reformatted images were created and reviewed. This CT exam was performed using one or more of the following dose reduction techniques: automated exposure control, adjustment of the mA and/or kV according to patient size, and/or use of iterative reconstruction technique. CONTRAST: 94ml of Optiray 320 was administered intravenously. COMPARISON: No relevant prior studies available. FINDINGS: Limitations: None. CHEST: Lungs and pleural spaces: There is dependent atelectasis in both lung bases. No significant pleural effusion. No pneumothorax. No mass. Heart: Cardiomegaly. No right heart strain. No pericardial effusion. Marked left anterior coronary calcification noted. Mediastinum: No abnormality noted. Thyroid: No abnormality noted. ABDOMEN: Liver: Low attenuation focus in the liver consistent with a hepatic cyst. No follow-up is necessary. Gallbladder and bile ducts: Cholecystectomy. No ductal dilation or stone noted. Pancreas: Homogeneous enhancement. No mass, inflammation or ductal dilation. Spleen: No significant abnormality noted. Adrenals: No significant abnormality noted. Kidneys and ureters: Normal enhancement. No mass, hydronephrosis or visualized stone. Stomach and bowel: Prominent fluid throughout the intestinal tract without obstruction. There is some formed stool scattered in loops particularly the rectum. No focal inflammatory process. There is a right inguinal hernia containing small bowel loops without obstruction. PELVIS: Appendix: No findings to suggest acute appendicitis. Bladder: No filling defects to suggest mass or large stone. No inflammation. Reproductive: Enlarged heterogeneous sleep enhancing prostate with nodular opacities present throughout. The prostate measures 6.0 x 5.5 x 5.8 cm. CHEST, ABDOMEN and PELVIS: Intraperitoneal space: No free air. No significant fluid collection. Retroperitoneal space: No abnormality noted. No fluid collection. Bones/joints: See below. Soft tissues: There is a small paraspinal soft tissue hematoma at approximate T4 with fracture through the anterior osseous bridge at T3-T4 and the superior endplate of T4. No stenosis. Degenerative changes present at other spinal levels. There is an acute comminuted fracture of the left glenoid. Vasculature: Atherosclerotic calcification of the aorta and branches. No aneurysm. Lymph nodes: No enlarged lymph nodes. IMPRESSION: 1. Acute left glenoid and T4 fractures. 2. No traumatic change of the aorta or solid abdominal or pelvic organs. Impression ileus. Impression enlarged prostate with multiple nodules. Correlate clinically. 3. Small bowel containing right inguinal hernia without obstruction. ACT 112: N/A Electronically signed by Yasmeen Araujo 03-30-2025 13:[address] 03/30/25 11:25 EXAM: CT Head and Cervical Spine Without Intravenous Contrast INDICATION: Trauma last week. Weakness. TECHNIQUE: Axial computed tomography images of the head/brain and cervical spine without intravenous contrast. Sagittal and coronal reformatted images were created and reviewed. This CT exam was performed using one or more of the following dose reduction techniques: automated exposure control, adjustment of the mA and/or kV according to patient size, and/or use of iterative reconstruction technique. COMPARISON: No relevant prior studies available. FINDINGS: Limitations: None. Brain and extra-axial spaces: There is age appropriate cortical atrophy and chronic ischemic periventricular white matter hypodensity. No acute infarct, hemorrhage or mass noted. Sinuses: No layering fluid in the visualized portions of the paranasal sinuses. Mastoid air cells: No mastoid effusion. Orbits: No significant abnormality noted. Vertebrae: See below. Discs/spinal canal/neural foramina: Cervical vertebra demineralized. Diffuse moderate facet arthrosis. There is partial osseous fusion of C2 and C3. Mild spondylosis. Prominent uncal spurring C3-C4. Diffuse mild disc space narrowing. Soft tissues: No significant abnormality noted. Vasculature: Intracranial atherosclerosis noted. Mild intracranial atherosclerosis of the vertebral arteries. Lung apices: No significant abnormality noted. Pleural space: No visualized pleural effusion or pneumothorax. IMPRESSION: 1. Cerebral atrophy. No acute changes. 2. Cervical degenerative changes. No fracture. ACT 112: N/A Electronically signed by Yasmeen Araujo 03-30-2025 13:[address] 03/30/25 11:25 EXAM: CT Chest Abdomen and Pelvis With Intravenous Contrast INDICATION: Trauma last week. Weakness. TECHNIQUE: Axial computed tomography images of the chest, abdomen and pelvis with intravenous contrast. Sagittal and coronal reformatted images were created and reviewed. This CT exam was performed using one or more of the following dose reduction techniques: automated exposure control, adjustment of the mA and/or kV according to patient size, and/or use of iterative reconstruction technique. CONTRAST: 94ml of Optiray 320 was administered intravenously. COMPARISON: No relevant prior studies available. FINDINGS: Limitations: None. CHEST: Lungs and pleural spaces: There is dependent atelectasis in both lung bases. No significant pleural effusion. No pneumothorax. No mass. Heart: Cardiomegaly. No right heart strain. No pericardial effusion. Marked left anterior coronary calcification noted. Mediastinum: No abnormality noted. Thyroid: No abnormality noted. ABDOMEN: Liver: Low attenuation focus in the liver consistent with a hepatic cyst. No follow-up is necessary. Gallbladder and bile ducts: Cholecystectomy. No ductal dilation or stone noted. Pancreas: Homogeneous enhancement. No mass, inflammation or ductal dilation. Spleen: No significant abnormality noted. Adrenals: No significant abnormality noted. Kidneys and ureters: Normal enhancement. No mass, hydronephrosis or visualized stone. Stomach and bowel: Prominent fluid throughout the intestinal tract without obstruction. There is some formed stool scattered in loops particularly the rectum. No focal inflammatory process. There is a right inguinal hernia containing small bowel loops without obstruction. PELVIS: Appendix: No findings to suggest acute appendicitis. Bladder: No filling defects to suggest mass or large stone. No inflammation. Reproductive: Enlarged heterogeneous sleep enhancing prostate with nodular opacities present throughout. The prostate measures 6.0 x 5.5 x 5.8 cm. CHEST, ABDOMEN and PELVIS: Intraperitoneal space: No free air. No significant fluid collection. Retroperitoneal space: No abnormality noted. No fluid collection. Bones/joints: See below. Soft tissues: There is a small paraspinal soft tissue hematoma at approximate T4 with fracture through the anterior osseous bridge at T3-T4 and the superior endplate of T4. No stenosis. Degenerative changes present at other spinal levels. There is an acute comminuted fracture of the left glenoid. Vasculature: Atherosclerotic calcification of the aorta and branches. No aneurysm. Lymph nodes: No enlarged lymph nodes. IMPRESSION: 1. Acute left glenoid and T4 fractures. 2. No traumatic change of the aorta or solid abdominal or pelvic organs. Impression ileus. Impression enlarged prostate with multiple nodules. Correlate clinically. 3. Small bowel containing right inguinal hernia without obstruction. ACT 112: N/A Electronically signed by Yasmeen Araujo 03-30-2025 13:[address] 03/30/25 11:25 EXAM: CT Head and Cervical Spine Without Intravenous Contrast INDICATION: Trauma last week. Weakness. TECHNIQUE: Axial computed tomography images of the head/brain and cervical spine without intravenous contrast. Sagittal and coronal reformatted images were created and reviewed. This CT exam was performed using one or more of the following dose reduction techniques: automated exposure control, adjustment of the mA and/or kV according to patient size, and/or use of iterative reconstruction technique. COMPARISON: No relevant prior studies available. FINDINGS: Limitations: None. Brain and extra-axial spaces: There is age appropriate cortical atrophy and chronic ischemic periventricular white matter hypodensity. No acute infarct, hemorrhage or mass noted. Sinuses: No layering fluid in the visualized portions of the paranasal sinuses. Mastoid air cells: No mastoid effusion. Orbits: No significant abnormality noted. Vertebrae: See below. Discs/spinal canal/neural foramina: Cervical vertebra demineralized. Diffuse moderate facet arthrosis. There is partial osseous fusion of C2 and C3. Mild spondylosis. Prominent uncal spurring C3-C4. Diffuse mild disc space narrowing. Soft tissues: No significant abnormality noted. Vasculature: Intracranial atherosclerosis noted. Mild intracranial atherosclerosis of the vertebral arteries. Lung apices: No significant abnormality noted. Pleural space: No visualized pleural effusion or pneumothorax. IMPRESSION: 1. Cerebral atrophy. No acute changes. 2. Cervical degenerative changes. No fracture. ACT 112: N/A Electronically signed by Yasmeen Araujo 03-30-2025 13:[address] 03/30/25 11:25 EXAM: CT Thoracic and Lumbar Spine Without Intravenous Contrast INDICATION: Fell last week. Generalized weakness. TECHNIQUE: Axial computed tomography images of the thoracic and lumbar spine without intravenous contrast. Sagittal and coronal reformatted images were created and reviewed. This CT exam was performed using one or more of the following dose reduction techniques: automated exposure control, adjustment of the mA and/or kV according to patient size, and/or use of iterative reconstruction technique. COMPARISON: No relevant prior studies available. FINDINGS: Vertebrae: The bones are generally demineralized. There is mild S-shaped curvature of the thoracic spine. Diffuse osseous demineralization noted. Diffuse thoracolumbar spondylosis noted. Facet arthrosis noted in the lumbar spine. Acute fracture through the superior endplate and anterior osseous bridge of T4. There is diffuse moderate facet arthrosis. There is moderate thoracolumbar spondylosis. No fracture or subluxation. Discs/spinal canal/neural foramina: Diffuse moderate thoracic disc space narrowing. Mild generalized lumbar disc space narrowing most notable at L5-S1. There is facet hypertrophy and diffuse disc bulge at L3-L4 with mild ventral and bilateral foraminal stenosis. Slightly more prominent but similar changes noted at L4-L5. Soft tissues: No significant abnormality noted. IMPRESSION: 1. Acute fracture through the superior endplate and anterior osseous bridge of T4. Small paraspinal soft tissue hematoma noted. 2. No acute lumbar abnormality noted. ACT 112: N/A Electronically signed by Yasmeen Araujo 03-30-2025 13:[address] 03/30/25 11:25 EXAM: CT Thoracic and Lumbar Spine Without Intravenous Contrast INDICATION: Fell last week. Generalized weakness. TECHNIQUE: Axial computed tomography images of the thoracic and lumbar spine without intravenous contrast. Sagittal and coronal reformatted images were created and reviewed. This CT exam was performed using one or more of the following dose reduction techniques: automated exposure control, adjustment of the mA and/or kV according to patient size, and/or use of iterative reconstruction technique. COMPARISON: No relevant prior studies available. FINDINGS: Vertebrae: The bones are generally demineralized. There is mild S-shaped curvature of the thoracic spine. Diffuse osseous demineralization noted. Diffuse thoracolumbar spondylosis noted. Facet arthrosis noted in the lumbar spine. Acute fracture through the superior endplate and anterior osseous bridge of T4. There is diffuse moderate facet arthrosis. There is moderate thoracolumbar spondylosis. No fracture or subluxation. Discs/spinal canal/neural foramina: Diffuse moderate thoracic disc space narrowing. Mild generalized lumbar disc space narrowing most notable at L5-S1. There is facet hypertrophy and diffuse disc bulge at L3-L4 with mild ventral and bilateral foraminal stenosis. Slightly more prominent but similar changes noted at L4-L5. Soft tissues: No significant abnormality noted. IMPRESSION: 1. Acute fracture through the superior endplate and anterior osseous bridge of T4. Small paraspinal soft tissue hematoma noted. 2. No acute lumbar abnormality noted. ACT 112: N/A Electronically signed by Yasmeen Araujo 03-30-2025 13:24 PM Medications Administered Medication List Discontinued Medications Sodium Chloride (Nss) 1,000 mls @ 999 mls/hr IV .Q1H1M ONE Stop: 03/30/25 12:28 Last Infusion: 03/30/25 14:31 Dose: Infused Documented By: Admin: 03/30/25 11:48 Dose: 999 mls/hr Documented By: MURALI Ioversol (Optiray 320 100ml) 94 ml IV ONCE ONE Stop: 03/30/25 12:27 Last Admin: 03/30/25 12:26 Dose: 94 ml Documented By: JENNY Morphine Sulfate (Morphine Sulfate 2 Mg/Ml Carp) 2 mg IV NOW STA Stop: 03/30/25 11:29 Last Admin: 03/30/25 11:48 Dose: 2 mg Documented By: MURALI Ondansetron HCl (Ondansetron Inj 2 Mg/Ml 2 Ml Vial) 4 mg IV NOW STA Stop: 03/30/25 11:29 Last Admin: 03/30/25 11:48 Dose: 4 mg Documented By: MURALI ECG Additional Comments: I have independently reviewed and interpreted patient's admitting EKG which revealed: 67, NSR, qtc 420ms, no st or t wave changes Code Status & VTE Plan Code Status FULL CODE Supervising Physician Co-Signing Physician Notes delayed entry date of service noted above Attending Addendum: Case reviewed with the advanced practitioner. I have personally performed a history and physical examination on the patient. I have reviewed the advanced practitioner's documentation on the date of service referenced in note, and I agree with, and take responsibility for the plan of care. please refer to her notes for full details patient seen and examined, records reviewed by myself as well diagnoses and plan of care as per advanced practitioner's notes I spent a total of 40 minutes coordinating, documenting, and providing care for this patient, excluding time spent in the performance of separately billed services or time spent by another provider/QHP. Nicolás Nguyen MD
--- NOTE | 2025-03-30 16:24 | XRay Report ---
Study: Left shoulder 4 views History: Trauma Comparison: None Findings/impression: Comminuted fracture of the left glenoid is seen. No significant displacement. Alignment is anatomic. Joint spaces are well maintained. There is no joint effusion or significant soft tissue swelling. Bone mineralization is decreased. Electronically signed by Diego Alcantara 03-30-2025 4:24 PM
--- NOTE | 2025-03-30 17:06 | XRay Report ---
Left ribs, 5 views History: Chest pain Comparison: None Findings: Single AP view of the chest performed. No focal consolidation or pleural effusion. No pneumothorax. The cardiomediastinal silhouette is within normal limits. Normal pulmonary vascularity. No evidence for lymphadenopathy. No visualized bony or soft tissue abnormality. Impression: No acute left rib abnormality. Electronically signed by Diego Alcantara 03-30-2025 5:06 PM
[2025-03-30] MEDS ORDERED: POLYETHYLENE (MIRALAX) 17 GM PACK PO PRN (17:31)
[2025-03-30] MEDS ORDERED: DEXTROSE 50% 50 ML SYRINGE IV PRN (17:31)
[2025-03-30] MEDS ORDERED: CARBOHYDRATES FOR HYPOGLYCEMIA PO PRN (17:31)
[2025-03-30] MEDS ORDERED: GLUCOSE 40% GEL 15 GM TUBE PO PRN (17:31)
[2025-03-30] MEDS ORDERED: GLUCOSE 10 TAB/TUBE PO PRN (17:31)
[2025-03-30] MEDS ORDERED: GLUCAGON FOR INJ 1 MG VIAL SQ PRN (17:31)
[2025-03-30] MEDS ORDERED: ONDANSETRON INJ 2 MG/ML 2 ML VIAL IV PRN (17:31)
[2025-03-30] MEDS ORDERED: MELATONIN 3 MG TAB PO PRN (17:31)
--- NOTE | 2025-03-30 17:32 | Orthopedic Consultation ---
Date of Consultation March 30, 2025 Assessment & Plan (1) Closed fracture of glenoid cavity of left scapula: (2) T4 vertebral fracture: (3) Fall: (4) Ambulatory dysfunction: (5) Arthritis: (6) BPH (benign prostatic hyperplasia): (7) GERD (gastroesophageal reflux disease): (8) Diabetes mellitus, type 2: (9) Hypertension: (10) Hyperlipidemia: Plan 80-year-old gentleman presenting to the hospital after multiple falls over the last week or so. Patient complaining of back and left shoulder pain. On evaluation emergency department he was found to have an intra-articular fracture of the glenoid of his left scapula. His history, physical exam, imaging findings are consistent with this. Patient was also found to have spine trauma and the spine team has been consulted for this. With the guards the patient's shoulder, I do long discussion with him and his regarding the nature of this injury. We discussed in great detail the pathoanatomy, pathophysiology, treatment options. I expressed to him that in general fracture of the glenoid are managed operatively if there is greater than 4 mm of displacement or articular step-off. The patient's CT scan puts him right at the edge of this, however I believe that given the patient's age, I think that he would have a functionally good outcome with nonoperative care. Patient was elated to hear this as he did not wish to have surgery for his shoulder. I would recommend a sling for comfort that he can use for the next week or so, however I would like him to begin early range of motion. He can gently work on pendulums at this point and he will progress to physical therapy within the next 2 weeks to allow for more active and passive range of motion. Should the patient require surgical management in the future, I do think this would be best in the form of an arthroplasty type procedure following healing of his glenoid fracture. I would have him see my upper extremity colleague, Dr. Mackey Calhoun one of my arthroplasty colleagues such as Dr. Valenzuela or Dr Hernandez As these folks are more experienced in shoulder arthroplasty type procedures. The spine team's been consulted for the patient's thoracic spine. The guards the patient's shoulder, I would allow him gentle motion with pendulums and I would have him nonweightbearing on his left upper extremity until more healing is noted. History of Present Illness Reason for Consultation: left shoulder pain Attending Physician: Nicolás Nguyen MD History of Present Illness This is a 80-year-old male who has a significant past medical history of T2DM, HTN, HLD, GERD, BPH, NATI and B12 deficiency who presents to ED after sustaining a fall approximately 1 week ago. His significant other is at bedside who also helps elicit history. He reports 2 falls in the past 2 weeks time. He states 2 weeks ago he was out walking picking blueberries whenever he lost his footing and fell on his left side. Since that fall he has been having left shoulder and left chest wall pain. Approximately 1 week ago he fell backwards getting in the tub and landed on his back. Since then he has been having upper and lower back pain. He denies any loss of consciousness or striking his head with his falls. He also denies any lightheadedness, dizziness or presyncope. He feels he should use the walker at home, but has not been. He feels he loses his balance and legs just generally feel weaker. He denies any recent illness, insect bite or rash. He denies any recent fever, chills, sweats, chest pain, shortness of breath, cough, nausea, vomiting, abdominal pain, change in his bowel or urinary habits. He does complain of left-sided chest wall pain with deep breathing. H is appetite has otherwise been normal. He has been taking his medications regularly. In ED patient remained hemodynamically stable. CTs reynolds scan revealed an acute fracture through the superior endplate and anterior osseous bridge of T4 with a small paraspinal soft tissue hematoma. Also noted on chest CT was a left glenoid fracture. Due to above fractures admission was recommended for further workup and PT evaluation. on my evaluation, the patient notes only back and shoulder pain. Denies any additional areas of pain. States overall he is feeling well. Does note a history of rotator cuff surgery by Dr. Hernandez about 10 years ago on that left shoulder. Allergies Allergy/AdvReac Type Severity Reaction Status Date / Time No Known Allergies Allergy Mild Verified 03/30/25 14:18 Home Medications Medication Instructions Recorded Confirmed Type aspirin 81 mg capsule 81 mg PO Q2D 02/06/24 03/30/25 History carvedilol 6.25 mg tablet 6.25 mg PO BID 02/06/24 03/30/25 History cyanocobalamin (vitamin B-12) 1,000 mcg PO DAILY 02/06/24 03/30/25 History 1,000 mcg tablet doxazosin 4 mg tablet 4 mg PO HS 02/06/24 03/30/25 History empagliflozin 25 mg tablet 25 mg PO QAM 02/06/24 03/30/25 History (Jardiance) lisinopril 20 mg tablet 20 mg PO QAM 02/06/24 03/30/25 History metformin 500 mg tablet 1,000 mg PO BID 02/06/24 03/30/25 History pantoprazole 40 mg tablet,delayed 40 mg PO BID 02/06/24 03/30/25 History release rosuvastatin 5 mg tablet 5 mg PO HS 02/06/24 03/30/25 History sertraline 100 mg tablet 100 mg PO QPM 02/06/24 03/30/25 History finasteride 5 mg tablet 5 mg PO QAM 03/30/25 03/30/25 History Patient History Medical History Arthritis BPH (benign prostatic hyperplasia) GERD (gastroesophageal reflux disease) Diabetes mellitus, type 2 Hx of basal cell carcinoma History of anxiety Hypertension Hyperlipidemia Surgical History History of cataract surgery right History of repair of rotator cuff right History of colonoscopy History of appendectomy History of cholecystectomy History of tooth extraction History of cardiac cath 2019> no stents placed Family History Other No family history of adverse response to anesthesia Social History Smoking Status: Never smoker Tobacco Type: Smokeless Tobacco (Dip or Chew) Second Hand Exposure: Yes (in the past); Do You Dip or Chew Tobacco: Yes (advised); Hx Alcohol Use: No Preferred Language: Austrian Product Marketing Analyst Required: No Beliefs That Will Affect Care: None Current Living Situation: Significant Other Feels Safe at Home: Yes Assistive Devices: Denture - Upper and Denture - Lower Review of Systems Review of Systems: Negative less otherwise stated above Physical Exam Physical Exam: on physical examination the patient's left shoulder no open wounds are appreciated. He has pain with attempted range of motion of the shoulder. He has intact sensation C5-T1 and intact AIN, PIN, radial, median, ulnar nerves. He has +2 radial pulse Results & Data Vital Signs (Past 12 Hours) Vital Signs Temp Pulse Pulse Resp BP BP Pulse Ox 03/30/25 17:00 59 L 134/64 93 03/30/25 15:38 72 03/30/25 15:13 61 26 H 109/93 96 03/30/25 14:08 65 20 114/60 93 03/30/25 13:39 57 L 22 117/57 L 92 03/30/25 11:39 92 03/30/25 11:38 91 03/30/25 11:33 69 03/30/25 11:12 36.8 C 73 20 95/55 L 98 O2 Del Method 03/30/25 17:00 Room Air 03/30/25 15:38 03/30/25 15:13 Room Air 03/30/25 14:08 Room Air 03/30/25 13:39 Room Air 03/30/25 11:39 Room Air 03/30/25 11:38 Room Air 03/30/25 11:33 03/30/25 11:12 Room Air Diagnostic Findings x-rays of the left shoulder as well as CT scan of the chest with special attention paid to the left shoulder were personally interpreted and reviewed. This demonstrates an acute intra-articular fracture of the left glenoid with approximately 3.8mm displacement. (1) Closed fracture of glenoid cavity of left scapula Encounter type: initial encounter Fracture alignment: nondisplaced Qualified Code(s): S42.145A - Nondisplaced fracture of glenoid cavity of scapula, left shoulder, initial encounter for closed fracture (2) T4 vertebral fracture Encounter type: initial encounter Fracture morphology: unspecified fracture morphology Fracture type: closed Qualified Code(s): S22.049A - Unspecified fracture of fourth thoracic vertebra, initial encounter for closed fracture
[2025-03-30] MEDS: INSULIN ASPART PER UNIT CHARGE SC SCH (18:12)
[2025-03-30] MEDS: LIDOCAINE 5% 1 PATCH TD SCH ×2 (18:22→18:24)
[2025-03-30] MEDS: SODIUM CHLORIDE 0.9% 1,000 ML IV SCH (18:25)
[2025-03-30] MEDS: LANTUS PER UNIT CHARGE SQ SCH (21:40)
[2025-03-30] MEDS: ACETAMINOPHEN 500 MG TAB PO SCH (21:42)
[2025-03-30] MEDS: SERTRALINE HCL 100 MG TABLET PO SCH (21:43)
[2025-03-30] MEDS: ROSUVASTATIN CALCIUM 5 MG TAB PO SCH (21:43)
[2025-03-30] MEDS: DOCUSATE SODIUM 100 MG CAP PO SCH (21:44)
[2025-03-31] MEDS: REMOVE LIDODERM PATCH SCH ×2 (05:30→05:31)
[2025-03-31] MEDS: CYANOCOBALAMIN (B-12) 500 MCG TABLET PO SCH (08:45)
[2025-03-31] MEDS: FINASTERIDE 5 MG TAB PO SCH (08:45)
[2025-03-31 08:54] LABS: Hematocrit (blood only) 32.2 % (42.0-52.0); Hemoglobin 10.7 g/dl (14.0-18.0); Immature Granulocytes # (auto) 0.03 K/uL (0.01-0.20); Immature Granulocytes % (auto) 0.5 %; Mean Corpuscular Hemoglobin 26.8 pg (25.0-34.0); Mean Corpuscular Volume 80.5 fL (80.0-100.0); Platelet Count 211 K/uL (130-400); RDW Standard Deviation 45.2 fL (36.4-46.3); Red Blood Count 4.00 M/uL (4.70-6.10); White Blood Count 5.63 K/ul (4.8-10.8)
[2025-03-31 09:10] LABS: Alanine Aminotransferase 10.0 U/L (7-52); Albumin Globulin Ratio 1.0 (0.9-2); Alkaline Phosphatase 95.0 U/L (34-104); Anion Gap 6.0 (3-11); Bilirubin,Total 0.5 mg/dl (0.2-1.0); Blood Urea Nitrogen 12.0 mg/dl (6-23); Calcium 8.5 mg/dl (8.6-10.3); Carbon Dioxide 28.0 mmol/L (21-32); Chloride 106.0 mmol/L (98-107); Creatinine Clr Calc Pharmacy 92.2 ml/min; Globulin 3.1 gm/dl (2.5-4.0); Glucose 104.0 mg/dl (70-99(Fasting)); Magnesium 1.7 mg/dl (1.7-2.4); Potassium 4.1 mmol/L (3.5-5.1); Sodium 140.0 mmol/L (136-145); Total Protein 6.3 gm/dl (6.0-8.3)
--- NOTE | 2025-03-31 10:14 | Orthopedic Consultation ---
Date of Service March 31, 2025 History of Present Illness Reason for Consultation: Superior thoracic pain, nondisplaced thoracic fracture. Requesting Physician: . Attending Physician: Phu Bright MD 80-year-old male who has a significant past medical history of T2DM, HTN, HLD, GERD, BPH, NATI and B12 deficiency who presents to ED after sustaining a fall approximately 1 week ago. He notes he was stepping out of the bathtub and lost his balance and fell backwards. He has been having pain on his left neck, left shoulder blade, left back mid thoracic and lower lumbar region. He has significant pain with any movement. Denies any weakness or numbness in the arms or legs. No chest pain or shortness of breath. No nausea, vomiting, or diarrhea. No dysuria, urgency, or frequency. He has been walking since then but has significant pain. Able to urinate move bowels. Exam reveals patient indicate pain in upper thoracic spine, very limited tender ness palpation in this region but none in the cervical spine. Left shoulder was in a sling, patient has intact puller through strength bilaterally, no focal motor weakness in the lower extremities on examination. CT Thoracic and Lumbar Spine Without Intravenous Contrast March 30, 2025 INDICATION: Fell last week. Generalized weakness. COMPARISON: No relevant prior studies available. FINDINGS: Vertebrae: The bones are generally demineralized. There is mild S-shaped curvature of the thoracic spine. Diffuse osseous demineralization noted. Diffuse thoracolumbar spondylosis noted. Facet arthrosis noted in the lumbar spine. Acute fracture through the superior endplate and anterior osseous bridge of T4. There is diffuse moderate facet arthrosis. There is moderate thoracolumbar spondylosis. No fracture or subluxation. Discs/spinal canal/neural foramina: Diffuse moderate thoracic disc space narrowing. Mild generalized lumbar disc space narrowing most notable at L5-S1. There is facet hypertrophy and diffuse disc bulge at L3-L4 with mild ventral and bilateral foraminal stenosis. Slightly more prominent but similar changes noted at L4-L5. Soft tissues: No significant abnormality noted. IMPRESSION: 1. Acute fracture through the superior endplate and anterior osseous bridge of T4. Small paraspinal soft tissue hematoma noted. 2. No acute lumbar abnormality noted. CT scan of the thoracic spine from March 30, 2025 about Segundo, these images were reviewed, this my separate interpretation, this reveals a very minimal nondisplaced fracture relative to osseous bridging anteriorly at T4 there is no evidence of additional compression fracture or any other findings denoting structural instability, additional degenerative changes as noted with bridging osteophytes. Impression: Nondisplaced fracture involving anterior osseous bridge in the T4 region with small hematoma present, some limited axial symptomatology in this region. Plan: Recommendations would include just appropriate pain management, no bracing indicated in this situation, I advised the patient upon doing any significant lifting with the right arm, he will be undergoing fracture care working with Dr. Neri and relative to the left shoulder. Follow-up roughly in 2 to 3 weeks with radiographs of the thoracic spine, with focus in the T4 region. Allergies Allergy/AdvReac Type Severity Reaction Status Date / Time No Known Allergies Allergy Mild Verified 03/30/25 14:18 Home Medications Medication Instructions Recorded Confirmed Type aspirin 81 mg capsule 81 mg PO Q2D 02/06/24 03/30/25 History carvedilol 6.25 mg tablet 6.25 mg PO BID 02/06/24 03/30/25 History cyanocobalamin (vitamin B-12) 1,000 mcg PO DAILY 02/06/24 03/30/25 History 1,000 mcg tablet doxazosin 4 mg tablet 4 mg PO HS 02/06/24 03/30/25 History empagliflozin 25 mg tablet 25 mg PO QAM 02/06/24 03/30/25 History (Jardiance) lisinopril 20 mg tablet 20 mg PO QAM 02/06/24 03/30/25 History metformin 500 mg tablet 1,000 mg PO BID 02/06/24 03/30/25 History pantoprazole 40 mg tablet,delayed 40 mg PO BID 02/06/24 03/30/25 History release rosuvastatin 5 mg tablet 5 mg PO HS 02/06/24 03/30/25 History sertraline 100 mg tablet 100 mg PO QPM 02/06/24 03/30/25 History finasteride 5 mg tablet 5 mg PO QAM 03/30/25 03/30/25 History Past Med/Surg History Problem List (Updated 03/30/25 @ 17:10 by Donavon Cruz DO) Chest wall tenderness (Acute) Fall (Acute) Closed fracture of glenoid cavity of left scapula (Acute) T4 vertebral fracture (Acute) Ambulatory dysfunction Fall Corneal foreign body (Acute) Chest pain (Acute) Medical History Arthritis BPH (benign prostatic hyperplasia) GERD (gastroesophageal reflux disease) Diabetes mellitus, type 2 Hx of basal cell carcinoma History of anxiety Hypertension Hyperlipidemia Surgical History History of cataract surgery right History of repair of rotator cuff right History of colonoscopy History of appendectomy History of cholecystectomy History of tooth extraction History of cardiac cath 2019> no stents placed Family History Other No family history of adverse response to anesthesia Social History Smoking Status: Never smoker Tobacco Type: Smokeless Tobacco (Dip or Chew) Second Hand Exposure: No; Do You Dip or Chew Tobacco: Yes; Tobacco Cessation Education Requested by Patient: No Hx Alcohol Use: No Hx Substance Use: No Preferred Language: Yoruba Communication Ability: Effective Laboratory Director Required: No Beliefs That Will Affect Care: None Current Living Situation: Significant Other Other Information That Helps Us Care for You: No Feels Safe at Home: Yes Safety Concerns: Feels Safe At This Time Assistive Devices: Denture - Upper and Denture - Lower Assistive Devices Comment: Reading glasses normally, but not with pt. Review of Systems All systems reviewed & are unremarkable except as noted in HPI & below. Physical Exam . Results & Data Results & Data Laboratory Results . Diagnostic Findings . PG Care Time/CCT Total # of Minutes Spent Total Time Spent with Patient: Total time spent is greater than 50% in coordination of care (as documented) at patient's floor/unit and/or counseling patient: Coding Level of Care Code 14258 IN/OBS CONSULT LVL 3,45M
--- NOTE | 2025-03-31 10:55 | Electrocardiogram Report ---
Test Reason : Blood Pressure : */* mmHG Vent. Rate : 67 BPM Atrial Rate : 67 BPM P-R Int : 200 ms QRS Dur : 88 ms QT Int : 398 ms P-R-T Axes : 33 -32 55 degrees QTcB Int : 420 ms Normal sinus rhythm Left axis deviation Abnormal ECG When compared with ECG of 09-Dec-2014 06:39, QRS axis Shifted left Confirmed by Jan Neri ([id number]) on 03/31/2025 10:55:15 AM Referred By: REFERRED SELF Confirmed By: Jan Neri
[2025-03-31 15:17] VITALS: BP 133/61; PULSE 60; RESP 20; TEMP 98.1; O2SAT 96
--- NOTE | 2025-03-31 16:01 | Discharge Summary ---
Discharge Summary Date of Service March 31, 2025 Principal Dx & Hospital Course #1 = Principal Diagnosis (1) Fall: (2) Ambulatory dysfunction: (3) T4 vertebral fracture: (4) Closed fracture of glenoid cavity of left scapula: (5) Diabetes mellitus, type 2: (6) Hypertension: Plan This is a 80-year-old male who has a significant past medical history of T2DM, HTN, HLD, GERD, BPH, NATI and B12 deficiency who presents to ED after sustaining a fall approximately 1 week ago. Patient presents to ED after sustaining 2 falls in the last 2 weeks time. First fall occurred on his left shoulder and chest wall while walking picking blueberries. Second fall occurred approximately 1 week ago where he fell backwards getting out of bath tub. Denies striking head or loss of consciousness. Denies any lightheadedness or dizziness. Reports general lower extremity weakness and occasional off balance. #Ambulatory dysfunction #Falls #T4 superior endplate Fx with small paraspinal hematoma #Left glenoid fracture admit to medical consult ortho spine for T4 fx consult orthopedics Dr. Neri for L glenoid fx obtain XR rib series of L chest wall given pinpoint tenderness and pain with deep breathing to eval for rib fx pain control with scheduled 1g apap TID, lidocaine patches to back/chest wall and prn oxy IR 5mg consult PT/OT, NWB to LUE until seen by ortho #T2DM a1c 7.4 on 03/18/25, controlled lantus/novolog per protocol, hold jardiance & metformin #HTN hx of HTN on coreg and lisinopril pt with lower BP in ED, will hold lisinopril for now and monitor, may be associated to morphine co administration obtain orthostatics now and BID, pt reports 6 months ago of orthostasis sx, if positive consider discontinuing dutasteride #per RN: Just wanted to let you know that the pt has an abnormally shaped bump (mole like) with black dry areas on it on the upper mid back just below the neck. He does have a h/o basal cell carninoma. DVT ppx: SCDS for now given small paraspinal hematoma, hold baby ASA as well ( pt is just taking for prevention no hx of cad, pad, stroke or TIA) FULL CODE PCP: Erinn Dispo: admit to medical, PT/OT consulted, pt may benefit from short term rehab Pt was seen and examined in collaboration with Dr. Nguyen, please see addendum I spent a total of 76 minutes coordinating, documenting and providing care for this patient excluding time spent in the performance of separately billed services or time spent by another provider/QHP. Notes For Next Care Provider 80-year-old male who has a significant past medical history of T2DM, HTN, HLD, G ERD, BPH, NATI and B12 deficiency who presents to ED after sustaining a fall approximately 1 week ago. Noted to have a T4 and glenoid fracture, admitted to medicine. On medicine, ortho consulted, recommended conservative management and PT/OT. PT/OT consulted, recommended outpatient/home PT/OT. On 03/31/2025 patient medically stable for discharge home. To do: [ ] PT/OT outpatient Medication Changes From Visit -see below Admission HPI Per Admitting Provider This is a 80-year-old male who has a significant past medical history of T2DM, HTN, HLD, GERD, BPH, NATI and B12 deficiency who presents to ED after sustaining a fall approximately 1 week ago. His significant other is at bedside who also helps elicit history. He reports 2 falls in the past 2 weeks time. He states 2 weeks ago he was out walking picking blueberries whenever he lost his footing and fell on his left side. Since that fall he has been having left shoulder and left chest wall pain. Approximately 1 week ago he fell backwards getting in the tub and landed on his back. Since then he has been having upper and lower back pain. He denies any loss of consciousness or striking his head with his falls. He also denies any lightheadedness, dizziness or presyncope. He feels he should use the walker at home, but has not been. He feels he loses his balance and legs just generally feel weaker. He denies any recent illness, insect bite or rash. He denies any recent fever, chills, sweats, chest pain, shortness of breath, cough, nausea, vomiting, abdominal pain, change in his bowel or urinary habits. He does complain of left-sided chest wall pain with deep breathing. His appetite has otherwise been normal. He has been taking his medications regularly. In ED patient remained hemodynamically stable. CTs reynolds scan revealed an acute fracture through the superior endplate and anterior osseous bridge of T4 with a small paraspinal soft tissue hematoma. Also noted on chest CT was a left glenoid fracture. Due to above fractures admission was recommended for further workup and PT evaluation. Discharge Exam Gen: A&O 3 NAD HEENT: NCAT, EOMI, not icteric. External ears normal. No rhinorrhea. Moist mucous membranes. Neck: Supple, full range of motion, no observable masses, No meningeal sign. Lungs: No Respiratory distress. CV: RRR, no edema. Abdomen: Soft, nondistended, No rebound tenderness. MSK: limited ROM in left shoulder, in sling Skin: No rashes, petechiae, lesions. Normal color per patient. Neuro: Normal Gait, Grossly intact. Psych: Appropriate for situation. Updated Medication List Medication Instructions Recorded Confirmed Type aspirin 81 mg capsule 81 mg PO Q2D 02/06/24 03/30/25 History carvedilol 6.25 mg tablet 6.25 mg PO BID 02/06/24 03/30/25 History cyanocobalamin (vitamin B-12) 1,000 mcg PO DAILY 02/06/24 03/30/25 History 1,000 mcg tablet doxazosin 4 mg tablet 4 mg PO HS 02/06/24 03/30/25 History empagliflozin 25 mg tablet 25 mg PO QAM 02/06/24 03/30/25 History (Jardiance) lisinopril 20 mg tablet 20 mg PO QAM 02/06/24 03/30/25 History metformin 500 mg tablet 1,000 mg PO BID 02/06/24 03/30/25 History pantoprazole 40 mg tablet,delayed 40 mg PO BID 02/06/24 03/30/25 History release rosuvastatin 5 mg tablet 5 mg PO HS 02/06/24 03/30/25 History sertraline 100 mg tablet 100 mg PO QPM 02/06/24 03/30/25 History finasteride 5 mg tablet 5 mg PO QAM 03/30/25 03/30/25 History lidocaine 5 % topical patch 1 patch transdermal Q24H #30 ea 03/31/25 Rx oxycodone 5 mg tablet 5 mg PO Q4H PRN pain #14 tabs 03/31/25 Rx Hospital Stay Data Consultations 03/30/25 14:55 ED Decision to Admit Stat 03/30/25 15:19 Consult Orthopedic Spine Surgery Routine Consult Orthopedic Surgery Routine Diagnostic Imagining Performed 03/30/25 11:25 CT abd pelvis IV con only Stat CT cervical spine wo con Stat CT chest diagnostic w con Stat CT head/brain wo con Stat CT lumbar spine w con Stat CT thoracic spine w con Stat Pending Results Patient Have Any Pending Studies at Discharge: No Discharge Instructions Given to Patient (Per Discharging Provider) 1. Please follow up with PT/OT outpatient, ortho outpatient, and PCP. 2. Please take medications as prescribed. Total Time Total Time Spent Total Time Spent (In Minutes): I spent a total of 35 minutes in direct patient care, including [id number] time with the patient and/or family, reviewing medical records, ordering and reviewing diagnostic tests, and coordinating care with other healthcare providers. This time includes: history taking, physical examination, medical decision making, counseling, ECG interpretation, imaging interpretation, lab interpretation, orders, and education, excluding time spent in the performance of separately billed services.
== END 2025-03-31 17:08 | disposition home health service (06) | DRG 552 ==
LOC: ED 11:08 → 3N 15:19 → SUATTDRO 15:19 → 3N 17:10

== ENCOUNTER 2025-05-26 12:56 | Inpatient (IN) ==
--- NOTE | 2025-05-26 14:22 | Emergency Department Note ---
Impression & Plan Adult failure to thrive, Generalized weakness, Hypomagnesemia ED Provider Note HISTORY OF PRESENT ILLNESS: Patient is a 80-year-old male presenting to the ER for failure to thrive. Patient was referred by his primary care provider, given his worsening renal function. Family at bedside reports that the patient has not been eating or drinking well and they had messaged his primary care provider who recommended he present to the ER for failure to thrive secondary to his metastatic prostate cancer. Patient is currently undergoing radiation therapy for his prostate cancer and is supposed to start later today. Patient reports he has not had much in terms of an appetite for the last month. He reports he has significant amounts of nausea and takes Zofran before every meal. However, he states that about 30 minutes after eating he often vomits because he is so nauseous. He states that when he stands up too quickly he does feel lightheaded and dizzy and this has been ongoing for the last month. He denies any chest pain or shortness of breath. Denies recent fevers. Denies any abdominal pain. Denies any dysuria or hematuria. He reports feeling generally weak and states this has been ongoing for the last 30 days. ROS: as above PHYSICAL EXAM: Constitutional: Patient appears in no acute distress. HENT: Head: Normocephalic and atraumatic. Eyes: EOMI, PERRL Mouth/Throat: Mucous membranes moist. Neck: Trachea midline. Neck supple. Cardiovascular: RRR, No murmurs, rubs or gallops. Intact distal pulses. Pulmonary/Chest: No respiratory distress. Breath sounds clear and equal bilaterally. No wheezes or rales. Abdominal: Abdomen soft, no tenderness, rebound or guarding. Musculoskeletal: No edema, tenderness or deformity noted. Skin: Warm and dry. No rash, erythema, pallor or cyanosis Psychiatric: Appropriate mood and affect for situation. Neurological: Alert and keenly responsive. CN II-XII grossly intact, moving all extremities equally and fully. MDM: - Vitals signs stable. - History obtained via patient. History as above. - Chronic conditions affecting care: HTN; HLD; GERD; DM-2; metastatic prostate cancer - Differential diagnoses include, but are not limited to: Electrolyte abnormality; dehydration; dysrhythmia; bowel obstruction - Order placed for continuous cardiac monitoring. At this time, monitor showed rate of 70 bpm with normal sinus rhythm, per my interpretation. - External medical records reviewed. Telephone documentation through the [employer] (T/A) system from today was reviewed. Primary care provider Dr. Plasencia had recommended that the patient present to the ER to be admitted for his failure to thrive secondary to his metastatic prostate cancer. - EKG image interpreted by myself showed normal sinus rhythm. Rate 63 bpm. QT 416. No acute ischemic changes. - Laboratory workup interpreted by myself showed leukopenia (WBC 4.39); anemia (Hgb 12.7); stable electrolytes other than hypomagnesemia (Mg 1.5) - Laboratory workup obtained on 05/23/2025 was reviewed in the [employer] system. Patient had creatinine of 1.5 at that time. - 1g IV magnesium ordered for electrolyte replacement. Given 1L NS and 4mg IV zofran in ER. - I was contacted by radiation oncology nurse who stated that Dr. Gomez has a scheduled radiation for the patient at 5 PM today. I discussed that the patient would likely be admitted for his failure to thrive and continued nausea and poor oral intake. They plan to take the patient for his radiation at 5 PM. - Though CT abdomen/pelvis was considered to be obtained, it was not because the patient is not having any reproducible abdominal pain at this time. - Discussion was had with director of casework services about patient's case and need for admission - Hospitalist consulted for admission - Patient admitted to [facility] hospitalist service for further evaluation and management. 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) Prostate cancer (Chronic 04/11/25) Elevated PSA, greater than or equal to 20 ng/ml Chest wall tenderness (Acute) Fall (Acute) Closed fracture of glenoid cavity of left scapula (Acute) T4 vertebral fracture (Acute) Ambulatory dysfunction Fall Corneal foreign body (Acute) Chest pain (Acute) Medical History Arthritis BPH (benign prostatic hyperplasia) GERD (gastroesophageal reflux disease) Diabetes mellitus, type 2 Hx of basal cell carcinoma History of anxiety Hypertension Hyperlipidemia Surgical History History of cataract surgery History of repair of rotator cuff History of colonoscopy History of appendectomy History of cholecystectomy History of tooth extraction History of cardiac cath Family History Brother Cancer Brother Cancer Other No family history of adverse response to anesthesia Social History Smoking Status: Never smoker Tobacco Type: Smokeless Tobacco (Dip or Chew) Second Hand Exposure: No; Do You Dip or Chew Tobacco: Yes; Hx Alcohol Use: No Hx Substance Use: No Preferred Language: Barbadian Communication Ability: Effective Hearing Ability: Normal Account Retention Representative Required: No Beliefs That Will Affect Care: None Current Living Situation: Significant Other current occupational status: retired Feels Safe at Home: Yes during the past year weight has: decreased > 10 lbs Assistive Devices: Glasses Allergies Allergies Allergy/AdvReac Type Severity Reaction Status Date / Time No Known Allergies Allergy Mild Verified 05/26/25 15:29 Home Meds Home Medications Medication Instructions Recorded Confirmed aspirin 81 mg capsule 81 mg PO Q2D 02/06/24 05/26/25 carvedilol 6.25 mg tablet 6.25 mg PO QAM 02/06/24 05/26/25 cyanocobalamin (vitamin B-12) 1,000 mcg PO DAILY 02/06/24 05/26/25 1,000 mcg tablet doxazosin 4 mg tablet 4 mg PO HS 02/06/24 05/26/25 metformin 500 mg tablet 1,000 mg PO BID 02/06/24 05/26/25 finasteride 5 mg tablet 5 mg PO QAM 03/30/25 05/26/25 Previous Rx's Medication Instructions Recorded oxycodone 5 mg tablet 5 mg PO Q4H PRN pain #14 tabs 03/31/25 bicalutamide 50 mg tablet 50 mg PO DAILY Prostate cancer #60 05/07/25 tabs Results & Data (ED) Vital Signs Vital Signs - 24 hr 05/26/25 13:16 05/26/25 15:36 05/26/25 15:36 Temperature 36.8 C Temperature Source Oral Pulse Rate 68 57 L Pulse Rate [Apical] 60 Respiratory Rate 14 16 Respiratory Effort / Characteristics Non-Labored Non-Labored Spontaneous Respiratory Depth Normal Normal Blood Pressure 103/65 Blood Pressure [Right Arm] 133/77 Blood Pressure Mean 77 Blood Pressure Mean [Right Arm] 95 Pulse Oximetry 98 99 Oxygen Delivery Method Room Air Room Air Sepsis Recent Fever Within 48 Hours No Sepsis New/Unexplained Change in Mental Status N/A Sepsis Action Taken by Nursing No Action Required Laboratory Data 05/26/25 15:03 05/26/25 15:03 Lab Results 05/26/25 Range/Units 15:03 WBC 4.39 L (4.8-10.8) K/ul RBC 4.89 (4.70-6.10) M/uL Hgb 12.7 L (14.0-18.0) g/dl Hct 38.5 L (42.0-52.0) % MCV 78.7 L (80.0-100.0) fL MCH 26.0 (25.0-34.0) pg MCHC 33.0 (32.0-36.0) g/dL RDW Std Deviation 47.2 H (36.4-46.3) fL RDW Coeff of Ruben 16.6 H (11.5-14.5) % Plt Count 199 (130-400) K/uL MPV 8.6 L (9.4-12.4) fL Immature Gran % (Auto) 0.2 % Neut % (Auto) 60.6 % Lymph % (Auto) 28.7 % Frontier % (Auto) 9.1 % Eos % (Auto) 0.9 % Baso % (Auto) 0.5 % Neut # (Auto) 2.66 (1.40-6.50) K/uL Lymph # (Auto) 1.26 (1.20-3.40) K/uL Frontier # (Auto) 0.40 (0.11-0.59) K/uL Eos # (Auto) 0.04 (0.00-0.50) K/uL Baso # (Auto) 0.02 (0.00-0.20) K/uL Immature Gran # (Auto) 0.01 (0.01-0.20) K/uL Sodium 138 (136-145) mmol/L Potassium 3.9 (3.5-5.1) mmol/L Chloride 105 (98-107) mmol/L Carbon Dioxide 27 (21-32) mmol/L Anion Gap 6 (3-11) BUN 30 H (6-23) mg/dl Creatinine 0.96 (0.6-1.4) mg/dl Est Cr Clr Drug Dosing 54.8 ml/min eGFR 80.40 BUN/Creatinine Ratio 31.3 H (10-20) Glucose 98 (70-99(Fasting)) mg/dl Calcium 8.9 (8.6-10.3) mg/dl Magnesium 1.5 L (1.7-2.4) mg/dl Total Bilirubin 0.6 (0.2-1.0) mg/dl AST 12 L (13-39) U/L ALT 7 (7-52) U/L Alkaline Phosphatase 159 H (34-104) U/L Total Protein 6.9 (6.0-8.3) gm/dl Albumin 4.1 (3.4-5.0) gm/dl Globulin 2.8 (2.5-4.0) gm/dl Albumin/Globulin Ratio 1.5 (0.9-2) Administered Medications Magnesium Sulfate/Dextrose (Magnesium Sulfate / D5w) 1 gm in 100 mls @ 100 mls/hr IV NOW STA Stop: 05/26/25 16:42 Last Admin: 05/26/25 15:55 Dose: 100 mls/hr Documented By: TYSHAWN Discharge Plan Visit Data Chief Complaint: Referred by Doctor Stated Complaint: DOC REF ED Provider: Bev Brasher Discharge Problem: Adult failure to thrive, Generalized weakness, Hypomagnesemia Condition: Fair Forms Stand Alone Forms: [facility] Prescriptions Prescriptions: No Action bicalutamide 50 mg tablet 50 mg PO DAILY Qty: 60 0RF metformin 500 mg Tablet 1,000 mg PO BID Rx Instructions: PER PT "TOLD TO STOP THIS MED TODAY, 05/26/25" doxazosin 4 mg Tablet 4 mg PO HS cyanocobalamin (vitamin B-12) 1,000 mcg Tablet 1,000 mcg PO DAILY aspirin 81 mg Capsule 81 mg PO Q2D carvedilol 6.25 mg Tablet 6.25 mg PO QAM Rx Instructions: ORDERED BID, PER PT "ONLY TAKE QAM". must administer with a meal/food finasteride 5 mg tablet 5 mg PO QAM oxycodone 5 mg Tablet 5 mg PO Q4H PRN (Reason: pain) Qty: 14 0RF Referrals Referrals: Parth Plasencia DO [Primary Care Provider] -
[2025-05-26 15:21] LABS: Hematocrit (blood only) 38.5 % (42.0-52.0); Hemoglobin 12.7 g/dl (14.0-18.0); Immature Granulocytes # (auto) 0.01 K/uL (0.01-0.20); Immature Granulocytes % (auto) 0.2 %; Mean Corpuscular Hemoglobin 26.0 pg (25.0-34.0); Mean Corpuscular Volume 78.7 fL (80.0-100.0); Platelet Count 199 K/uL (130-400); RDW Standard Deviation 47.2 fL (36.4-46.3); Red Blood Count 4.89 M/uL (4.70-6.10); White Blood Count 4.39 K/ul (4.8-10.8)
[2025-05-26 15:41] LABS: Alanine Aminotransferase 7.0 U/L (7-52); Albumin Globulin Ratio 1.5 (0.9-2); Alkaline Phosphatase 159.0 U/L (34-104); Anion Gap 6.0 (3-11); Bilirubin,Total 0.6 mg/dl (0.2-1.0); Blood Urea Nitrogen 30.0 mg/dl (6-23); Calcium 8.9 mg/dl (8.6-10.3); Carbon Dioxide 27.0 mmol/L (21-32); Chloride 105.0 mmol/L (98-107); Creatinine Clr Calc Pharmacy 54.8 ml/min; Globulin 2.8 gm/dl (2.5-4.0); Glucose 98.0 mg/dl (70-99(Fasting)); Magnesium 1.5 mg/dl (1.7-2.4); Potassium 3.9 mmol/L (3.5-5.1); Sodium 138.0 mmol/L (136-145); Total Protein 6.9 gm/dl (6.0-8.3)
[2025-05-26] MEDS: MAGNESIUM SULFATE / D5W 1 GM/100 ML BAG IV STA (15:55)
[2025-05-26] MEDS: SODIUM CHLORIDE 0.9% 1,000 ML IV ONE (16:21)
[2025-05-26] MEDS: ONDANSETRON INJ 2 MG/ML 2 ML VIAL IV STA (16:21)
--- NOTE | 2025-05-26 16:49 | History & Physical Report ---
Date of Service May 26, 2025 Assessment & Plan (1) Generalized weakness: Plan: Patient is a 80 year old male with past medical history of prostate cancer with mets to bone, hypertension, hyperlipidemia, gastroesophageal reflux, and type 2 diabetes who presents with generalized weakness, dehydration and decreased appetite. Patient reports ~50lb weight loss. Minimal oral intake food and fluids at home d/t nausea that has been managed with Zofran TID. Only eating a cup of applesauce and a few cookies per day. No vomiting or diarrhea. Feels generally weak. Has periodic dizziness at times without recent falls. Dizzy when standing that resolves on own. Oral diabetic meds recently stopped by PCP d/t weight loss. Generalized weakness #Adult FTT 2/2 Prostate CA with mets to bone * Admit to Med Surg tele for additional workup and management * Appears malnourished with ~50 lb weight loss, minimal po's at home - cup of applesauce and cookies/day, symptomatic dehydration with dizziness * Ongoing nausea w/o vomiting, taking zofran TID at home-> will give Zofran as needed here; QTc 425 today * Possible LOTUS in setting of dehydration; Creatinine 0.9/GFR 80; BUN/Creat ratio elevated * NSS 1L given in ED; IV fluid maintenance ordered for inpatient NSS 125 ml/hr for total volume 1500 ml * Retail Planner consult placed for nutritional assessment; BMI 20 * PT/OT ordered; h/o falls and possible unsteady gait-> will check ortho stat vitals * On Casodex at home for Prostate CA; Had 1st palliative radiation treatment in ED today per Dr. Gomez-> CM to assist with OP follow-up #Hypomagnesemia * Mag 1.5 and given 1gm replacement in ED-> additional 1gm ordered * Check Mag with AM labs #Diabetes Mellitus Type II * Empagliflozin stopped by PCP due to weight loss. * Was managed with metformin OP and advised to stop today while at PCP * A1C 6.8% (05/23/25) * Accuchecks ordered; may need SSI ordered if BSG elevated DVT Ppx: SCDs Code status: Full PCP: Dr. Parth Plasencia Dispo: Admit Patient seen in collaboration with Dr. Garcia. Please see addendum.I spent a total of 45 minutes coordinating, documenting and providing care for this patient excluding time spent in the performance of separately billed services or time spent by another provider/QHP. (2) Adult failure to thrive: (3) Prostate cancer metastatic to bone: (4) Hypomagnesemia: (5) Diabetes mellitus, type 2: History of Present Illness Primary Care Provider: Parth Plasencia DO Patient is a 80 year old male with past medical history of prostate cancer with mets to bone, hypertension, hyperlipidemia, gastroesophageal reflux, and type 2 diabetes who presents with generalized weakness, dehydration and decreased appetite. Patient reports ~50lb weight loss. Minimal oral intake food and fluids at home d/t nausea that has been managed with Zofran TID. Only eating a cup of applesauce and a few cookies per day. No vomiting or diarrhea. Feels generally weak. Has periodic dizziness at times without recent falls. Dizzy when standing that resolves on own. Oral diabetic meds recently stopped by PCP d/t weight loss. Denies fever, chills, weight loss, weakness, headache, cognitive changes, vision/hearing changes, chest pain, SOB, swelling, difficulty breathing, urinary concerns, V/D, joint swelling/pain, ambulation difficulty, skin rashes, lesions, bleeding, bruising. In the emergency department, patient was hemodynamically stable with no signs of infection or sepsis. Lab workup showed possible LOTUS, Creatinine stable at 0.96, BUN/Creat ratio elevated at 31 most likely in setting of dehydration. NSS 1L given in ED.Mag 1.5 and given 1gm replacement. Additional 1gm replacement ordered to follow. Patient has been newly diagnosed with metastatic prostate cancer to bone and under the care of Dr. Gomez with plan for palliative radiation therapy to the thoracic spine and left shoulde x 5. Patient was scheduled to have first radiation appointment today and was taken from ED for palliative radiation as per Dr. Gomez. Currently on Bicalutamide 50 mg p.o. daily for prostate CA. History obtained primarily from the patient and via hospitalization record. External chart review obtained from [employer]. Allergies Allergy/AdvReac Type Severity Reaction Status Date / Time No Known Allergies Allergy Mild Verified 05/26/25 15:29 Home Medications Medication Instructions Recorded Confirmed Type aspirin 81 mg capsule 81 mg PO Q2D 02/06/24 05/26/25 History carvedilol 6.25 mg tablet 6.25 mg PO QAM 02/06/24 05/26/25 History cyanocobalamin (vitamin B-12) 1,000 mcg PO DAILY 02/06/24 05/26/25 History 1,000 mcg tablet doxazosin 4 mg tablet 4 mg PO HS 02/06/24 05/26/25 History metformin 500 mg tablet 1,000 mg PO BID 02/06/24 05/26/25 History finasteride 5 mg tablet 5 mg PO QAM 03/30/25 05/26/25 History oxycodone 5 mg tablet 5 mg PO Q4H PRN pain #14 tabs 03/31/25 05/26/25 Rx bicalutamide 50 mg tablet 50 mg PO DAILY Prostate cancer #60 05/07/25 05/26/25 Rx tabs ondansetron 4 mg disintegrating 4 mg PO Q8H 05/26/25 05/26/25 History tablet pantoprazole 20 mg tablet,delayed 20 mg PO DAILY 05/26/25 05/26/25 History release Past Med/Surg History Problem List Hypomagnesemia (Acute) Generalized weakness (Acute) Adult failure to thrive (Acute) Prostate cancer metastatic to bone (Chronic 05/01/25) Prostate cancer (Chronic 04/11/25) Elevated PSA, greater than or equal to 20 ng/ml Chest wall tenderness (Acute) Fall (Acute) Closed fracture of glenoid cavity of left scapula (Acute) T4 vertebral fracture (Acute) Ambulatory dysfunction Fall Corneal foreign body (Acute) Chest pain (Acute) Medical History Arthritis BPH (benign prostatic hyperplasia) GERD (gastroesophageal reflux disease) Diabetes mellitus, type 2 Hx of basal cell carcinoma History of anxiety Hypertension Hyperlipidemia Surgical History History of cataract surgery b/l History of repair of rotator cuff left History of colonoscopy History of appendectomy History of cholecystectomy History of tooth extraction History of cardiac cath 2019> no stents placed Family History Brother Cancer Prostate Brother Cancer Prostate Other No family history of adverse response to anesthesia Social History Smoking Status: Never smoker Tobacco Type: Smokeless Tobacco (Dip or Chew) Second Hand Exposure: No; Do You Dip or Chew Tobacco: Yes; Tobacco Cessation Education Requested by Patient: No Hx Alcohol Use: No Hx Substance Use: No Preferred Language: Bahamian Communication Ability: Effective Hearing Ability: Normal Electrical Tech Required: No Beliefs That Will Affect Care: None Current Living Situation: Significant Other current occupational status: retired Feels Safe at Home: Yes during the past year weight has: decreased > 10 lbs Assistive Devices: Glasses Review of Systems Review of Systems: All systems reviewed & are unremarkable except as noted in HPI & below Physical Exam Physical Exam: VITALS: Reviewed. WEIGHT/BMI reviewed. GEN: Frail appearing, well-developed, NAD. PSYCH: Good Judgment. AOx4. Normal memory, mood, and affect. HEENT -Head: NC/AT; -Eyes: PERRL, EOMI. No discharge or redn ess; -Ears: External ears are normal. -Nose: Normal nares. -Mouth and throat: MMM. Normal gums, muc gagandeep, palate,. Good dentition. NECK: Supple, with no masses. CV: RRR, no m/r/g. No peripheral swelling. +tenting LUNGS: CTAB, no w/r/c. ABD: Soft, NT/ND, NBS x 4, no masses or organomegaly. : N/A SKIN: Warm. Abnormal mole noted to left upper back MSK: No deformities, Normal gait. EXT: No clubbing, cyanosis, or edema. NEURO: CN II-XII grossly intact. No focal deficits. Results & Data Results & Data Vital Signs (Past 12 Hours) Vital Signs Temp Pulse Pulse Resp BP BP Pulse Ox 05/26/25 15:36 57 L 05/26/25 15:36 60 16 133/77 99 05/26/25 13:16 36.8 C 68 14 103/65 98 O2 Del Method 05/26/25 15:36 05/26/25 15:36 Room Air 05/26/25 13:16 Room Air Laboratory Results Short CBC 05/26/25 Range/Units 15:03 WBC 4.39 L (4.8-10.8) K/ul Hgb 12.7 L (14.0-18.0) g/dl Hct 38.5 L (42.0-52.0) % Plt Count 199 (130-400) K/uL BMP 05/26/25 15:03 Sodium 138 Potassium 3.9 Chloride 105 Carbon Dioxide 27 BUN 30 H Creatinine 0.96 Glucose 98 Calcium 8.9 Liver Function 05/26/25 Range/Units 15:03 Total Bilirubin 0.6 (0.2-1.0) mg/dl AST 12 L (13-39) U/L ALT 7 (7-52) U/L Alkaline Phosphatase 159 H (34-104) U/L Albumin 4.1 (3.4-5.0) gm/dl Code Status & VTE Plan VTE Prophylaxis Plan VTE Prophylaxis will be ordered: Yes Supervising Physician Co-Signing Physician Notes Attending addendum: The patient was seen and examined in emergency room He has been complaining of generalized weakness associated with nausea and taiwo ght loss since diagnosis of prostate cancer with metastasis to the bone Has been getting Casodex but did not have any intravenous chemotherapy and now going to have palliative radiation treatment for the bone metastasis-involving thoracic spine and left shoulder Complains of nausea but no vomiting and denies any significant pain On examination Lying in bed without any acute distress Remains hemodynamically stable Chestclear to auscultate bilaterally HeartS1-S2, regular with a murmur 2/6 over precordium Abdomenbenignbowel sound present Extremitiesno edema His admission labs and imaging studies reviewed Noted to have unremarkable labs with magnesium of 1.5 He will be given intravenous fluid and electrolyte replacement He left patient with radiation treatment as planned His other medical conditions as mentioned above remains stable at We need to have PT and OT evaluation prior to discharge Agree with assessment plan as outlined above by DONN Chaudhari and take the full responsibility of care in the hospital Dr Sandeep Garcia
[2025-05-26] MEDS ORDERED: POLYETHYLENE (MIRALAX) 17 GM PACK PO PRN (18:36)
[2025-05-26] MEDS ORDERED: ONDANSETRON INJ 2 MG/ML 2 ML VIAL IV PRN (18:36)
[2025-05-26] MEDS ORDERED: ALUMINUM/MAGNESIUM SUSP 30 ML UDC PO PRN (18:36)
[2025-05-26] MEDS ORDERED: MAGNESIUM HYDROXIDE SUSP 30 ML UDC PO PRN (18:36)
[2025-05-26] MEDS ORDERED: ACETAMINOPHEN 325 MG TAB PO PRN (18:36)
[2025-05-26] MEDS: SODIUM CHLORIDE 0.9% 1,000 ML IV SCH (20:15)
[2025-05-26] MEDS: MAGNESIUM SULFATE / D5W 1 GM/100 ML BAG IV ONE (20:18)
[2025-05-26] MEDS: SODIUM CHLORIDE 0.9% 1,500 ML IV SCH (20:19)
[2025-05-27 06:37] LABS: Hematocrit (blood only) 35.5 % (42.0-52.0); Hemoglobin 11.7 g/dl (14.0-18.0); Mean Corpuscular Hemoglobin 26.1 pg (25.0-34.0); Mean Corpuscular Volume 79.1 fL (80.0-100.0); Platelet Count 178 K/uL (130-400); RDW Standard Deviation 47.6 fL (36.4-46.3); Red Blood Count 4.49 M/uL (4.70-6.10); White Blood Count 3.99 K/ul (4.8-10.8)
[2025-05-27 07:03] LABS: Anion Gap 5.0 (3-11); Blood Urea Nitrogen 18.0 mg/dl (6-23); Calcium 8.5 mg/dl (8.6-10.3); Carbon Dioxide 25.0 mmol/L (21-32); Chloride 111.0 mmol/L (98-107); Creatinine Clr Calc Pharmacy 73.5 ml/min; Glucose 91.0 mg/dl (70-99(Fasting)); Magnesium 1.8 mg/dl (1.7-2.4); Potassium 4.8 mmol/L (3.5-5.1); Sodium 141.0 mmol/L (136-145)
[2025-05-27] MEDS: ENOXAPARIN INJ 40 MG/0.4 ML SYR SQ SCH (08:13)
[2025-05-27] MEDS: BICALUTAMIDE 50 MG TAB PO SCH (08:13)
[2025-05-27] MEDS: ASPIRIN 81 MG ECTAB PO SCH (08:14)
[2025-05-27] MEDS: CYANOCOBALAMIN (B-12) 500 MCG TABLET PO SCH (08:14)
[2025-05-27] MEDS: FINASTERIDE 5 MG TAB PO SCH (08:15)
--- NOTE | 2025-05-27 09:22 | Hospitalist Progress Note ---
Date of Service May 27, 2025 Assessment & Plan (1) Prostate cancer metastatic to bone: (2) Adult failure to thrive: (3) Diabetes mellitus, type 2: (4) Hypertension: (5) Hypomagnesemia: Plan Patient 80-year-old gentleman who really appears to be having declining health o freddy the past few months associated with his diagnosis of metastatic prostate cancer. Patient also noted to be slightly bradycardic, blood pressures are fairly well- controlled, will discontinue Coreg Discontinue telemetry Therapy evaluations pending Dietitian evaluation pending Case management for discharge planning Patient's diabetes fairly well-controlled, will decrease his glucoscans to 2 times daily with call to provider if significantly elevated or glucoses are low. Goals of care discussion with patient lasting 25 minutes at the bedside: Patient does seem to understand that his prostate cancer is widespread. Did tell me that his oncologist told him that any treatment would be palliative and only slow progression of his cancer. And that a cure is unlikely. We discussed aggressive resuscitative measures including CPR and mechanical ventilation. The patient understood what this meant and was clear that he would not want to be resuscitated should something catastrophic like this happen. He stated that when it is his time to go he wants to be kept comfortable and allowed nature to take its course. Update his CODE STATUS to DNR/DNI. I discussed with him that moving forward he really needs to start thinking about how aggressive he would want to pursue interventional care. Concerned that potentially the Casodex is causing some of his nausea and decreased appetite. He does want to speak to the dietitian and see if there is any supplements that may benefit him. I also discussed with him palliative care. I explained to him that they would be beneficial to him especially once he is discharged and could follow-up with him in the office and manage his symptoms as he continues to make decisions on his goals of care and as his symptoms may progress. Patient does recognize that his time is limited. 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 He has plans for his stock of toys to be oxygen off in the next few weeks, he states he wanted his garage cleaned up so his family and significant other would not have to deal with them once he passes. Anticipate will get him connected with these therapist, dietitian, palliative care today and case management coordinating discharge most likely as soon as tomorrow Admission and Anticipated Discharge Date Admission Date: May 26, 2025 Subjective Patient awake, interactive this morning. Denies any significant pain. Nursing reports uneventful night. Does state that patient really wants to be independent with his activities Physical Exam Physical Exam: Constitutional: Alert, nontoxic, thin but not overly frail in appearance HEENT: Mucous membranes moist. Lungs: Clear to auscultation, decreased, no wheezes rales or rhonchi CV: S1-S2, regular Abdomen: Soft, nontender, nondistended Extremities: No significant edema Neuro: No focal deficits Psych: Cooperative, normal mood Results & Data Results & Data Vital Signs (Past 12 Hours) Vital Signs Temp Pulse Pulse Resp BP BP Pulse Ox 05/27/25 08:11 05/27/25 07:47 48 L 05/27/25 07:33 36.4 C L 55 L 16 119/60 98 05/27/25 03:00 36.5 C 68 17 133/74 96 05/26/25 22:55 05/26/25 22:24 36.4 C L 57 L 18 121/63 97 05/26/25 21:53 58 L Pulse Ox O2 Del Method O2 Del Method 05/27/25 08:11 Room Air 05/27/25 07:47 05/27/25 07:33 Room Air 05/27/25 03:00 Room Air 05/26/25 22:55 95 Room Air 05/26/25 22:24 Room Air 05/26/25 21:53 Diagnostic Findings Reviewed imaging, laboratory and diagnostic studies. Pertinent findings as below. CBC reviewed, overall stable BMP reviewed, stable Magnesium 1.8, improved
--- NOTE | 2025-05-27 09:30 | Palliative Care Consultation ---
Date of Consultation May 27, 2025 Assessment & Plan (1) Cancer related pain: Happy with current regimen avoidant with opioids happy for opportunity to f/u in OP pall med clinic awaiting med onc eval for possible chemo (2) Palliative care by specialist: Introduced Palliative Medicine and explained our role in patient's care. Patient and/or family were receptive to palliative services for goals of care discussions. Reviewed we are different from hospice, a home health nurse visiti service. (3) Advanced care planning/counseling discussion: A 30 min face to face ACP meeting was held with Mr Howard at bedside, no family present He states he has made some plans to divest some of his property/collectibles bc he is hoping to reduce the future stress burden on his family. He has elected DNR/DNI. We discussed POLST - he is willing to sign but says this can wait for OP clinic. He wants to hear what options he has for possible chemo but he knows he has an incurable cancer and he is very pragmatic about a limited life span and wanting the focus on comfort/QOL, he does not want to on machines or in the hospital. Being with family is important to him. (4) Generalized weakness: (5) Adult failure to thrive: (6) Prostate cancer metastatic to bone: Plan As above for likely dc tomorrow Will arrange for med onc and Pall med appt on same day Thank you for allowing us to participate in the ongoing care of this patient. Please page with any additional concerns. Jagruti Tomas DNP Director, Palliative Medicine History of Present Illness Reason for Consultation: Metastatic prostate cancer, failure to thrive Attending Physician: Wilian Cabrales DO History of Present Illness Mr Howard is a 80yo male admitted for declining health over the past few months associated with his diagnosis of metastatic prostate cancer. mets to bone, hypertension, hyperlipidemia, gastroesophageal reflux, and type 2 diabetes who presents with generalized weakness, dehydration and decreased appetite. Patient reports ~50lb weight loss. Minimal oral intake food and fluids at home d/t nausea that has been managed with Zofran TID. Only eating a cup of applesauce and a few cookies per day. No vomiting or diarrhea. Feels generally weak. Has periodic dizziness at times without recent falls. Dizzy when standing that resolves on own. Oral diabetic meds recently stopped by PCP d/t weight loss. The patient is symptomatic with discomfort involving his mid back as well as his left shoulder, he is receiving palliative radiation therapy. At time of my visit, he is out of bed in recliner, no family present He denies acute pain - feels he is comfortable and he would like to avoid using opioids anticipating dc home tomorrow. Allergies Allergy/AdvReac Type Severity Reaction Status Date / Time No Known Allergies Allergy Mild Verified 05/26/25 15:29 Home Medications Medication Instructions Recorded Confirmed Type aspirin 81 mg capsule 81 mg PO Q2D 02/06/24 05/26/25 History carvedilol 6.25 mg tablet 6.25 mg PO QAM 02/06/24 05/26/25 History cyanocobalamin (vitamin B-12) 1,000 mcg PO DAILY 02/06/24 05/26/25 History 1,000 mcg tablet doxazosin 4 mg tablet 4 mg PO HS 02/06/24 05/26/25 History metformin 500 mg tablet 1,000 mg PO BID 02/06/24 05/26/25 History finasteride 5 mg tablet 5 mg PO QAM 03/30/25 05/26/25 History oxycodone 5 mg tablet 5 mg PO Q4H PRN pain #14 tabs 03/31/25 05/26/25 Rx bicalutamide 50 mg tablet 50 mg PO DAILY Prostate cancer #60 05/07/25 05/26/25 Rx tabs ondansetron 4 mg disintegrating 4 mg PO Q8H 05/26/25 05/26/25 History tablet pantoprazole 20 mg tablet,delayed 20 mg PO DAILY 05/26/25 05/26/25 History release Patient History Medical History Arthritis BPH (benign prostatic hyperplasia) GERD (gastroesophageal reflux disease) Diabetes mellitus, type 2 Hx of basal cell carcinoma History of anxiety Hypertension Hyperlipidemia Surgical History History of cataract surgery b/l History of repair of rotator cuff left History of colonoscopy History of appendectomy History of cholecystectomy History of tooth extraction History of cardiac cath 2019> no stents placed Family History Brother Cancer Prostate Brother Cancer Prostate Other No family history of adverse response to anesthesia Social History Smoking Status: Never smoker Tobacco Type: Smokeless Tobacco (Dip or Chew) Second Hand Exposure: No; Do You Dip or Chew Tobacco: Yes; Tobacco Cessation Education Requested by Patient: No Hx Alcohol Use: No Hx Substance Use: No Preferred Language: Sammarinese Communication Ability: Effective Hearing Ability: Normal Cold Type Artist Required: No Beliefs That Will Affect Care: None Current Living Situation: Significant Other current occupational status: retired Feels Safe at Home: Yes during the past year weight has: decreased > 10 lbs Assistive Devices: Cane, Glasses and Walker Review of Systems Review of Systems: All systems reviewed & are unremarkable except as noted in Subjective Physical Exam Physical Exam: Mild bitemp wasting, AAOx3 Thin, chronically ill appearing/no acute distress Dentition fair Lungs CTA, no wheezes rales or rhonchi S1S2, RRR, no JVD Abdomen soft, NTP, BS+ Extremities w/o c/c/e Following commands, pleasant and cooperative Skin pale, +scatt ecchymoses, +delicate/papery Results & Data Vital Signs (Past 12 Hours) Vital Signs Temp Pulse Pulse Resp BP BP Pulse Ox 05/27/25 08:11 05/27/25 07:47 48 L 05/27/25 07:33 36.4 C L 55 L 16 119/60 98 05/27/25 03:00 36.5 C 68 17 133/74 96 05/26/25 22:55 05/26/25 22:24 36.4 C L 57 L 18 121/63 97 05/26/25 21:53 58 L Pulse Ox O2 Del Method O2 Del Method 05/27/25 08:11 Room Air 05/27/25 07:47 05/27/25 07:33 Room Air 05/27/25 03:00 Room Air 05/26/25 22:55 95 Room Air 05/26/25 22:24 Room Air 05/26/25 21:53 Laboratory Results 05/27/25 05/26/25 05/26/25 Range/Units 05:47 21:40 15:03 WBC 3.99 L 4.39 L (4.8-10.8) K/ul RBC 4.49 L 4.89 (4.70-6.10) M/uL Hgb 11.7 L 12.7 L (14.0-18.0) g/dl Hct 35.5 L 38.5 L (42.0-52.0) % MCV 79.1 L 78.7 L (80.0-100.0) fL MCH 26.1 26.0 (25.0-34.0) pg MCHC 33.0 33.0 (32.0-36.0) g/dL RDW Std Deviation 47.6 H 47.2 H (36.4-46.3) fL RDW Coeff of Ruben 16.7 H 16.6 H (11.5-14.5) % Plt Count 178 199 (130-400) K/uL MPV 9.2 L 8.6 L (9.4-12.4) fL Immature Gran % (Auto) 0.2 % Neut % (Auto) 60.6 % Lymph % (Auto) 28.7 % Bertie % (Auto) 9.1 % Eos % (Auto) 0.9 % Baso % (Auto) 0.5 % Neut # (Auto) 2.66 (1.40-6.50) K/uL Lymph # (Auto) 1.26 (1.20-3.40) K/uL Bertie # (Auto) 0.40 (0.11-0.59) K/uL Eos # (Auto) 0.04 (0.00-0.50) K/uL Baso # (Auto) 0.02 (0.00-0.20) K/uL Immature Gran # (Auto) 0.01 (0.01-0.20) K/uL Sodium 141 138 (136-145) mmol/L Potassium 4.8 D 3.9 (3.5-5.1) mmol/L Chloride 111 H 105 (98-107) mmol/L Carbon Dioxide 25 27 (21-32) mmol/L Anion Gap 5 6 (3-11) BUN 18 30 H (6-23) mg/dl Creatinine 0.74 0.96 (0.6-1.4) mg/dl Est Cr Clr Drug Dosing 73.5 54.8 ml/min eGFR 92.17 80.40 BUN/Creatinine Ratio 24.3 H 31.3 H (10-20) Glucose 91 98 (70-99(Fasting)) mg/dl POC Glucose 111 H (70-99) mg/dl Calcium 8.5 L 8.9 (8.6-10.3) mg/dl Phosphorus 2.8 (2.5-4.9) mg/dl Magnesium 1.8 1.5 L (1.7-2.4) mg/dl Total Bilirubin 0.6 (0.2-1.0) mg/dl AST 12 L (13-39) U/L ALT 7 (7-52) U/L Alkaline Phosphatase 159 H (34-104) U/L Total Protein 6.9 (6.0-8.3) gm/dl Albumin 4.1 (3.4-5.0) gm/dl Globulin 2.8 (2.5-4.0) gm/dl Albumin/Globulin Ratio 1.5 (0.9-2) PG Care Time/CCT Total # of Minutes Spent Total Time Spent with Patient: Total time spent is greater than 50% in coordination of care (as documented) at patient's floor/unit and/or counseling patient: I spent 100 minutes overall addressing this case: 15 min in medical data review/discussion with referring provider(s) and/or preparation for the visit 25 min in direct interaction with the patient/exam 30 min in Advance Care Planning/Goals of Care discussions as detailed above in note (must be >16min) 15 min in subsequent review and synthesis of assessment and plan 15 min communicating with other providers regarding the patient's case: primary tea, med onc, cancer clinic nursing team Advanced Care Planning 45102 Advanced Care Planning 30 [place] [address] IN/OBS CONSULT LVL 4,60M (25 - SIGNIFICANT, SEPARATELY IDENTIFIABLE ) Patient Type New Medical Decision Making High Complexity Diagnoses Cancer related pain G89.3 Palliative care by specialist Z51.5 Advanced care planning/counseling discussion Z71.89 Generalized weakness R53.1 Adult failure to thrive R62.7 Prostate cancer metastatic to bone C61; C79.51 Additional Codes Advanced Care Planning - 43611 Advanced Care Planning 30 Min: 80496 Advanced Care Planning 30 Min ([id number]) Comment [id number], [id number]
--- NOTE | 2025-05-27 09:41 | Electrocardiogram Report ---
Test Reason : Blood Pressure : */* mmHG Vent. Rate : 63 BPM Atrial Rate : 63 BPM P-R Int : 224 ms QRS Dur : 84 ms QT Int : 416 ms P-R-T Axes : 39 -30 35 degrees QTcB Int : 425 ms Sinus rhythm with 1st degree A-V block Left axis deviation Abnormal ECG When compared with ECG of 30-Mar-2025 11:26, Nonspecific T wave abnormality now evident in Inferior leads Confirmed by Jan Neri ([id number]) on 05/27/2025 9:40:05 AM Referred By: Parth Plasencia Confirmed By: Jan Neri
[2025-05-28 08:34] VITALS: RESP 20; TEMP 97.3; O2SAT 96
--- NOTE | 2025-05-28 08:54 | Discharge Summary ---
Discharge Summary Date of Service May 28, 2025 Principal Dx & Hospital Course #1 = Principal Diagnosis (1) Prostate cancer metastatic to bone: (2) Adult failure to thrive: (3) Diabetes mellitus, type 2: (4) Hypertension: (5) Hypomagnesemia: (6) Severe protein-calorie malnutrition: (7) Palliative care by specialist: (8) Cancer related pain: Plan Patient 80-year-old gentleman who was just recently diagnosed with metastatic prostate cancer undergoing initial treatments and radiation. Presented to the emergency room with some generalized weakness, poor appetite and weight loss. Patient was admitted to the hospital for some dehydration and failure to thrive. He was given some IV fluid resuscitation. By the following morning he was feeling better. Is able to tolerate a regular diet. He denied any real signi ficant pain that was unmanageable here in the hospital. Initiated goals of care conversation with him. During this conversation he did express that he wanted to be DNR/DNI. He wants to continue pursuing his options with his oncologist and radiation oncologist. Was willing to speak to palliative care in anticipation of him needing more symptom management in the future. Palliative care consultation was obtained. They visited with the patient. Symptoms are controlled at this point and they will help coordinate outpatient palliative care follow-up. Patient was also seen by dietitian. Given some information on getting enough protein and calorie intake. While here in the hospital he was able to eat his meals without any problems. He is going to give [employer] instant breakfast to try for protein and meal supplementation. On day of discharge his vital signs are stable. He was eating breakfast of Cheerios and yogurt. Understands his need for ongoing care and follow-up and will be discharged home. Notes For Next Care Provider Continue to encourage adequate protein intake Medication Changes From Visit None Admission HPI Per Admitting Provider Patient is a 80 year old male with past medical history of prostate cancer with mets to bone, hypertension, hyperlipidemia, gastroesophageal reflux, and type 2 diabetes who presents with generalized weakness, dehydration and decreased appetite. Patient reports ~50lb weight loss. Minimal oral intake food and fluids at home d/t nausea that has been managed with Zofran TID. Only eating a cup of applesauce and a few cookies per day. No vomiting or diarrhea. Feels generally weak. Has periodic dizziness at times without recent falls. Dizzy when standing that resolves on own. Oral diabetic meds recently stopped by PCP d/t weight loss. Denies fever, chills, weight loss, weakness, headache, cognitive changes, vision/hearing changes, chest pain, SOB, swelling, difficulty breathing, urinary concerns, V/D, joint swelling/pain, ambulation difficulty, skin rashes, lesions, bleeding, bruising. In the emergency department, patient was hemodynamically stable with no signs of infection or sepsis. Lab workup showed possible LOTUS, Creatinine stable at 0.96, BUN/Creat ratio elevated at 31 most likely in setting of dehydration. NSS 1L given in ED.Mag 1.5 and given 1gm replacement. Additional 1gm replacement ordered to follow. Patient has been newly diagnosed with metastatic prostate cancer to bone and under the care of Dr. Gomez with plan for palliative radiation therapy to the thoracic spine and left shoulde x 5. Patient was scheduled to have first r adiation appointment today and was taken from ED for palliative radiation as per Dr. Gomez. Currently on Bicalutamide 50 mg p.o. daily for prostate CA. History obtained primarily from the patient and via hospitalization record. External chart review obtained from [facility]. Admission Exam Per Admitting Provider See H&P Discharge Exam Constitutional: Alert, nontoxic, underweight HEENT: Mucous membranes moist. Lungs: Clear to auscultation, decreased, no wheezes rales or rhonchi CV: S1-S2, regular Abdomen: Soft, nontender, nondistended Extremities: No significant edema Neuro: No focal deficits Psych: Cooperative, normal mood Updated Medication List Medication Instructions Recorded Confirmed Type aspirin 81 mg capsule 81 mg PO Q2D 02/06/24 05/26/25 History carvedilol 6.25 mg tablet 6.25 mg PO QAM 02/06/24 05/26/25 History cyanocobalamin (vitamin B-12) 1,000 mcg PO DAILY 02/06/24 05/26/25 History 1,000 mcg tablet doxazosin 4 mg tablet 4 mg PO HS 02/06/24 05/26/25 History metformin 500 mg tablet 1,000 mg PO BID 02/06/24 05/26/25 History finasteride 5 mg tablet 5 mg PO QAM 03/30/25 05/26/25 History oxycodone 5 mg tablet 5 mg PO Q4H PRN pain #14 tabs 03/31/25 05/26/25 Rx bicalutamide 50 mg tablet 50 mg PO DAILY Prostate cancer #60 05/07/25 05/26/25 Rx tabs ondansetron 4 mg disintegrating 4 mg PO Q8H 05/26/25 05/26/25 History tablet pantoprazole 20 mg tablet,delayed 20 mg PO DAILY 05/26/25 05/26/25 History release Hospital Stay Data Consultations 05/26/25 15:58 ED Decision to Admit Stat 05/27/25 09:10 Consult Palliative Care Routine Diagnostic Imagining Performed Reviewed imaging, laboratory and diagnostic studies. Pertinent findings as below. CBC stable Electrolytes stable Magnesium replaced 1.8 Pending Results Patient Have Any Pending Studies at Discharge: No Discharge Instructions Given to Patient (Per Discharging Provider) Continue to follow-up with your outpatient appointments as scheduled Palliative care will help coordinate follow-up in their office or with the cancer palliative care team Continue with your radiation treatments as scheduled Total Time Total Time Spent Total Time Spent (In Minutes): 25
[2025-05-28 15:02] VITALS: BP 133/74; PULSE 61
== END 2025-05-28 16:58 | disposition home or self-care (01) | DRG 722 ==
LOC: ED 12:56 → 2W 16:37 → SUATTDRO 16:37 → 2W 18:09